=== PATIENT | female | born 1955 | race Caucasian/White ===

== ENCOUNTER 2020-02-26 08:02 | Outpatient (RCR) | payer OTHER, SELFPAY ==
--- NOTE | 2020-02-26 14:24 | PT.OIE ---
Current Diagnoses Lateral epicondylitis, unspecified elbow (02/26/20) Past Medical History (Last Updated 01/21/20 @ 15:45 by Trevon Spencer DO) Chicken pox Dupuytren's contracture Fibroids Heavy menstrual period Herpes Insomnia Measles Mumps Nearsightedness Ovarian cyst Skin cancer Skin tags, multiple acquired Tennis elbow Vasomotor symptoms due to menopause Past Surgical History (Last Updated 01/17/20 @ 21:26 by Chhaya Adrian) Anesthesia History of elbow surgery History of hysterectomy with oophorectomy (~2019) Visit Care Team Role Provider Type Trevon Spencer DO Attending Provider Physician Primary Care Provider Referring Provider Specialty: [facility] Address: [address] [place] [address], [facility] Email: [email or web address] Physical Therapy Initial Evaluation PT-OP-A Visit Information Start: 02/26/20 08:04 Freq: Status: Active Protocol: Document 02/26/20 12:22 (Rec: 02/26/20 12:43 [email or web address]) Out-Patient Physical Therapy Visit Information Visit Information Visit Type Initial Evaluation Visit Start Time 08:16 Visit Stop Time 09:00 Total Visit Minutes 44 Visit Number 1 Number of DIRECTOR OF MEDICAL EDUCATION Visits 0 Evaluation Information Evaluation Date 02/26/20 PT-OP-B Current Condition Start: 02/26/20 08:04 Freq: Status: Active Protocol: Document 02/26/20 12:22 HH (Rec: 02/26/20 12:43 [email or web address]) Current Condition History of Current Condition Onset Date November, Current Complaints B elbow pain R worse than L History of Current Condition Pt is a 64 yo female here referred by Dr. Spencer to assess with B tennis and golfer's elbow. Pt stated her elbow pain started in November after working on her house and boat for 5 days with lots of pushing and gripping motions. Her pain 2-3/10 located mostly at medial epicondyle than lateral epicondyle. R worse than L. Pt has reduced her activity level since then and use of ice which have been helpful. Pt stated she torn her LCL at R elbow 13 years from playing raquet ball but she fully recovered from it. Pt also stated that she is very active person who loves to play tennis, golf which tend to aggravates her symptoms since November. Current Functional Impairments (Reported) Functional Limitations- Recreation/ unable to play tennis and golf Hobbies at this time. PT-OP-C Subjective Start: 02/26/20 08:04 Freq: Status: Active Protocol: Document 02/26/20 12:22 HH (Rec: 02/26/20 12:43 [email or web address]) Patient Questionnaires Quick Dash- Upper Extremity Quick Dash UE Score 38.6 Quick Dash UE Impairment 20 to 39% Impaired (Score 20- 39) OP-PT Pain Assessment Location R epicondyles Pain Location Details medial and lateral Scale Used 2-3 Description Aching Frequency Frequent Pain Aggravating Factors Activity,Exercise,Lifting Pain Alleviating Factors Inactivity L epicondyles Pain Location Details medial and lateral Scale Used 1-2 Description Aching Frequency Frequent Pain Aggravating Factors Activity,Exercise,Lifting Pain Alleviating Factors Inactivity PT-OP-F Manual Assessment Start: 02/26/20 08:04 Freq: Status: Active Protocol: Document 02/26/20 12:22 HH (Rec: 02/26/20 12:43 [email or web address]) Manual Assessments Soft Tissue Assessment Soft Tissue Mobility Assessment significant tenderness to pressure for both Medial epicondyle ( R worse than L) mild tenderness to pressure for both Medial epicondyle ( R worse than L) PT-OP-K Range of Motion Start: 02/26/20 08:04 Freq: Status: Active Protocol: Document 02/26/20 12:22 HH (Rec: 02/26/20 12:43 [email or web address]) Elbow/Forearm Range of Motion Elbow/Forearm Right Active Elbow/Forearm ROM WFL Yes Left Active Elbow/Forearm ROM WFL Yes Wrist Goniometric Range of Motion Wrist Right Wrist ROM WFL Yes Flexion Active (degrees) 85 Extension Active (degrees) 45 Left Wrist ROM WFL Yes Flexion Active (degrees) 82 Extension Active (degrees) 47 PT-OP-L Special Tests Start: 02/26/20 08:04 Freq: Status: Active Protocol: Document 02/26/20 12:22 HH (Rec: 02/26/20 12:43 [email or web address]) Special Tests Wrist/Hand Special Tests Lateral Epicondylitis Flexed Test Results +VE R Lateral Epicondylitis Extended Test Results +VE R Medial Epicondylitis Test Results +VE B PT-OP-M Strength Start: 02/26/20 08:04 Freq: Status: Active Protocol: Document 02/26/20 12:22 HH (Rec: 02/26/20 12:43 [email or web address]) Shoulder Strength Shoulder Manual Muscle Testing Right Flexion 4+ Good+ Extension 4+ Good+ Abduction (C5) 4+ Good+ Left Flexion 4+ Good+ Extension 4+ Good+ Abduction (C5) 4+ Good+ Elbow/Forearm Strength Elbow and Forearm Manual Muscle Testing Right Flexion (C6) 4+ Good+ Extension (C7) 4+ Good+ Pronation 4- Good- Supination 4+ Good+ Comments resisted full pronation with pain Left Flexion (C6) 4+ Good+ Extension (C7) 4+ Good+ Pronation 4- Good- Supination 4+ Good+ Comments resisted full pronation with pain Wrist Strength Wrist Manual Muscle Testing Right Flexion (C7) 4- Good- Extension (C6) 4+ Good+ Comments resisted full flexion with pain dynanometer: position 1(closest) = 56lbs position 2 = 60lbs position 3= 64lbs position 4(farthest) = 60lbs Left Flexion (C7) 4- Good- Extension (C6) 4+ Good+ Comments resisted full flexion with pain dynanometer: position 1(closest) = 64lbs position 2 = 60lbs position 3= 64lbs position 4(farthest) = 58lbs PT-OP-Q Treatments Start: 02/26/20 08:04 Freq: Status: Active Protocol: Document 02/26/20 12:22 (Rec: 02/26/20 14:12 [email or web address]) Therapeutic Exercises Sitting Exercises wrist flexion and extension Side bilateral Equipment Used 2lbs DB Comments for HEP pronation/ supination Sitting Exercise Name from end of hammer head to distal end Side bilateral Equipment Used hammer Comments for HEP, reports discomfort at the distal end Manual Therapy Treatment Soft Tissue Mobilization common extensor tendon Body Location bilateral Mobilization Type Sustained Pressure,Trigger Point Release Intensity/Depth Moderate Body Position Sitting common flexor tendon Body Location Bilateral Mobilization Type Sustained Pressure,Trigger Point Release Intensity/Depth Moderate Body Position Sitting PT-OP-T Assessment and Plan Start: 02/26/20 08:04 Freq: Status: Active Protocol: Document 02/26/20 12:22 HH (Rec: 02/26/20 12:43 [email or web address]) Physical Therapy Assessment Rehab Potential Rehabilitation Potential Excellent Evaluation Complexity Number of Personal Factors/Comorbidities 1-2 Number of Body Systems Impaired 1-2 Clinical Presentation at Evaluation Stable Impairments Impairments Functional Activities, Functional Mobility,Pain,ROM, Soft Tissue Mobility,Strength Goals return to activities. Impairment unable to participate golfing and playing tennis d/t pain Group Dynamics Instructor Goal (LTG) pt will be regain her full strength and able to return to golf and tennis activities without elbow discomfort LTG Duration 8 weeks pain Impairment pain with resisted full pronation and wrist flexion Short Term Goal (STG) pt will have no more than 2/10 palpable pain at both medial and lateral epicondyle STG Duration 4 weeks Group Dynamics Instructor Goal (LTG) pt will have no pain for full resisted elbow pronation and wrist flexion in order for her to continue building/ house work safely. LTG Duration 8 weeks Quickdash Impairment Quickdash scores 38 Mcc Goal (LTG) Pt will score on quickdash <20 to improve her overall quality of life LTG Duration 8 weeks Assessment Summary Assessment This is a 64 yo female here referred by Dr. Spencer for bilateral elbow pain R worse than L. Pt has been progressively getting better since November. Upon assessment, pt has pain located at both medial and lateral epicondyles (medial>lateral; R>L). She has limited wrist extension ( ~50 degrees) and pain with end range resisted pronation and wrist flexion. She overall demonstrates good plater apprentice strength symmetrically and only has discomfort during recreational activities or maximal exertion with gripping and pushing motions. Provided wrist flexors stretch, elbow pron/sup strengthening, wrist flexor strengthening for HEP. Pt will benefit from skilled therapy to improve her overall plater apprentice strength, elbow strength and ROM in order for her to fully return her previous activities such as golfing and playing tennis. Physical Therapy Plan Frequency and Duration Frequency of Treatment 1x/Week Duration of Treatment 8 weeks Plan of Care Start Date 02/26/20 Plan of Care End Date 04/26/20 Therapeutic Interventions Therapeutic Interventions Home Exercise Program,Joint Mobilizations,Manual Therapy, Neuromuscular Re-education, Patient/Caregiver Education, Self-Care/Home Management,Soft Tissue Mobilization,Taping, Therapeutic Activities, Therapeutic Exercises Next Visit Focus/Plan Next Note Type Treatment Note Next Visit Plan STM for common flexor extensor tendon wrist flexor stretch pronation and supination strengtehning wrist flexion strengthening
--- NOTE | 2020-02-26 14:24 | PT.OPPOC ---
Physical, Occupational & Speech Therapy At [facility] Current Diagnoses Lateral epicondylitis, unspecified elbow (02/26/20) Visit Care Team Role Provider Type Trevon Spencer DO Attending Provider Physician Primary Care Provider Referring Provider Specialty: Family Practice Address: [address] [place] [address], [id number] Email: [email or web address] Plan Of Care PT-OP-T Assessment and Plan Start: 02/26/20 08:04 Freq: Status: Active Protocol: Document 02/26/20 12:22 HH (Rec: 02/26/20 12:43 HH [email or web address]) Physical Therapy Assessment Rehab Potential Rehabilitation Potential Excellent Evaluation Complexity Number of Personal Factors/Comorbidities 1-2 Number of Body Systems Impaired 1-2 Clinical Presentation at Evaluation Stable Impairments Impairments Functional Activities, Functional Mobility,Pain,ROM, Soft Tissue Mobility,Strength Goals return to activities. Impairment unable to participate golfing and playing tennis d/t pain Detention Goal (LTG) pt will be regain her full strength and able to return to golf and tennis activities without elbow discomfort LTG Duration 8 weeks pain Impairment pain with resisted full pronation and wrist flexion Short Term Goal (STG) pt will have no more than 2/10 palpable pain at both medial and lateral epicondyle STG Duration 4 weeks [employer]ision Millwright Goal (LTG) pt will have no pain for full resisted elbow pronation and wrist flexion in order for her to continue building/ house work safely. LTG Duration 8 weeks Quickdash Impairment Quickdash scores 38 [employer] Millwright Goal (LTG) Pt will score on quickdash <20 to improve her overall quality of life LTG Duration 8 weeks Assessment Summary Assessment This is a 64 yo female here referred by Dr. Spencer for bilateral elbow pain R worse than L. Pt has been progressively getting better since November. Upon assessment, pt has pain located at both medial and lateral epicondyles (medial>lateral; R>L). She has limited wrist extension ( ~50 degrees) and pain with end range resisted pronation and wrist flexion. She overall demonstrates good social science analyst strength symmetrically and only has discomfort during recreational activities or maximal exertion with gripping and pushing motions. Provided wrist flexors stretch, elbow pron/sup strengthening, wrist flexor strengthening for HEP. Pt will benefit from skilled therapy to improve her overall social science analyst strength, elbow strength and ROM in order for her to fully return her previous activities such as golfing and playing tennis. Physical Therapy Plan Frequency and Duration Frequency of Treatment 1x/Week Duration of Treatment 8 weeks Plan of Care Start Date 02/26/20 Plan of Care End Date 04/26/20 Therapeutic Interventions Therapeutic Interventions Home Exercise Program,Joint Mobilizations,Manual Therapy, Neuromuscular Re-education, Patient/Caregiver Education, Self-Care/Home Management,Soft Tissue Mobilization,Taping, Therapeutic Activities, Therapeutic Exercises Next Visit Focus/Plan Next Note Type Treatment Note Next Visit Plan STM for common flexor extensor tendon wrist flexor stretch pronation and supination strengtehning wrist flexion strengthening Plan of Care Dates Plan of Care Start Date 02/26/20 Plan of Care End Date 04/26/20 Electronically Signed by: Jeane Garnett PT 02/26/20 [id number] Please Sign and Return: I have reviewed this Plan of Care and certify that the skilled therapy services above are required to meet the patient?s needs. Physician Signature Date Printed Name and Credentials Clinical Instructor Signature Printed Name and Credentials
--- NOTE | 2020-02-26 14:24 | PT.OPPOC ---
Physical, Occupational & Speech Therapy At [facility] Current Diagnoses Lateral epicondylitis, unspecified elbow (02/26/20) Visit Care Team Role Provider Type Trevon Spencer DO Attending Provider Physician Primary Care Provider Referring Provider Specialty: Family Practice Address: [address] [place] [address], [id number] Email: [email or web address] Plan Of Care PT-OP-T Assessment and Plan Start: 02/26/20 08:04 Freq: Status: Active Protocol: Document 02/26/20 12:22 HH (Rec: 02/26/20 12:43 HH [email or web address]) Physical Therapy Assessment Rehab Potential Rehabilitation Potential Excellent Evaluation Complexity Number of Personal Factors/Comorbidities 1-2 Number of Body Systems Impaired 1-2 Clinical Presentation at Evaluation Stable Impairments Impairments Functional Activities, Functional Mobility,Pain,ROM, Soft Tissue Mobility,Strength Goals return to activities. Impairment unable to participate golfing and playing tennis d/t pain Care Home Goal (LTG) pt will be regain her full strength and able to return to golf and tennis activities without elbow discomfort LTG Duration 8 weeks pain Impairment pain with resisted full pronation and wrist flexion Short Term Goal (STG) pt will have no more than 2/10 palpable pain at both medial and lateral epicondyle STG Duration 4 weeks Data Warehouse Architect Goal (LTG) pt will have no pain for full resisted elbow pronation and wrist flexion in order for her to continue building/ house work safely. LTG Duration 8 weeks Quickdash Impairment Quickdash scores 38 Data Warehouse Architect Goal (LTG) Pt will score on quickdash <20 to improve her overall quality of life LTG Duration 8 weeks Assessment Summary Assessment This is a 64 yo female here referred by Dr. Spencer for bilateral elbow pain R worse than L. Pt has been progressively getting better since November. Upon assessment, pt has pain located at both medial and lateral epicondyles (medial>lateral; R>L). She has limited wrist extension ( ~50 degrees) and pain with end range resisted pronation and wrist flexion. She overall demonstrates good cut in station operator strength symmetrically and only has discomfort during recreational activities or maximal exertion with gripping and pushing motions. Provided wrist flexors stretch, elbow pron/sup strengthening, wrist flexor strengthening for HEP. Pt will benefit from skilled therapy to improve her overall cut in station operator strength, elbow strength and ROM in order for her to fully return her previous activities such as golfing and playing tennis. Physical Therapy Plan Frequency and Duration Frequency of Treatment 1x/Week Duration of Treatment 8 weeks Plan of Care Start Date 02/26/20 Plan of Care End Date 04/26/20 Therapeutic Interventions Therapeutic Interventions Home Exercise Program,Joint Mobilizations,Manual Therapy, Neuromuscular Re-education, Patient/Caregiver Education, Self-Care/Home Management,Soft Tissue Mobilization,Taping, Therapeutic Activities, Therapeutic Exercises Next Visit Focus/Plan Next Note Type Treatment Note Next Visit Plan STM for common flexor extensor tendon wrist flexor stretch pronation and supination strengtehning wrist flexion strengthening Plan of Care Dates Plan of Care Start Date 02/26/20 Plan of Care End Date 04/26/20 Electronically Signed by: Jeane Garnett PT 02/26/20 [id number] Please Sign and Return: I have reviewed this Plan of Care and certify that the skilled therapy services above are required to meet the patient?s needs. Physician Signature Date Printed Name and Credentials Clinical Instructor Signature Printed Name and Credentials
--- NOTE | 2020-04-07 16:15 | PT.OPDS ---
Current Diagnoses Lateral epicondylitis, unspecified elbow (02/26/20) Visit Care Team Role Provider Type Trevon Spencer DO Attending Provider Physician Primary Care Provider Referring Provider Specialty: Family [facility] Address: [address] [place] [address], [facility] Email: [email or web address] Visit Number Visit Number 1 Discharge Summary PT-OP-T Assessment and Plan Start: 02/26/20 08:04 Freq: Status: Active Protocol: Document 04/07/20 16:14 (Rec: 04/07/20 16:15 [email or web address]) Physical Therapy Plan Discharge Physical Therapy Discharge Reasons Patient Request Discharge Comments Called pt via phone today and she requested to be DC from therapy since she has improved significantly.
== END 2020-04-11 12:22 | disposition home or self-care (01) ==
LOC: PHYS 08:02
PROVIDERS: PCP Family Medicine; Referring Provider Family Medicine; Visit Provider Family Medicine
DX: M77.10 Lateral epicondylitis, unspecified elbow (principal)
CPT/HCPCS: 97110; 97140; 97161

== ENCOUNTER → 2020-03-07 16:36 | Outpatient (CLI) | payer OTHER, SELFPAY ==
--- NOTE | 2020-03-07 16:38 | DI.RAD.S_ITS ---
PROCEDURE: XR LUMBAR SPINE MIN 4V INDICATIONS: Low back pain, new TECHNIQUE: 4 views of the lumbar spine were acquired. COMPARISON: None. FINDINGS: Bones: 5 nonrib-bearing vertebrae are present. There is normal bony alignment. No vertebral body compression fractures. No suspicious bony lesions. Mild levoscoliosis. There is sdea-wm-lauzfysk degenerative disc disease at L2-L3, L3-L4 and L4-L5. Soft tissues: Overlying bowel gas pattern is normal. No suspicious soft tissue calcifications. Oblique images: No pars defects. IMPRESSION: 1. Mild levoscoliosis. 2. Itnu-iw-kwnnglvr degenerative disc disease. Dictated by: Elle Quintero M.D. on 03/07/2020 at 17:04 Approved by: Elle Quintero M.D. on 03/07/2020 at 17:05
== END ==
PROVIDERS: PCP Family Medicine; Referring Provider Family Medicine; Visit Provider Family Medicine
DX: M54.5 Low back pain (principal); M51.36 Other intervertebral disc degeneration, lumbar region; M41.86 Other forms of scoliosis, lumbar region
CPT/HCPCS: 72110

== ENCOUNTER → 2020-04-25 09:26 | Outpatient (CLI) | payer OTHER, SELFPAY ==
[2020-04-25 10:29] LABS: COVID19 -Nasal RAPID Negative (Negative)
== END ==
PROVIDERS: PCP Family Medicine; Visit Provider Family Medicine
DX: Z20.822 Contact with and (suspected) exposure to COVID-19 (principal); R05 Cough
CPT/HCPCS: 87635

== ENCOUNTER → 2020-04-25 10:11 | Outpatient (CLI) | payer OTHER, SELFPAY ==
--- NOTE | 2020-04-25 10:12 | DI.RAD.S_ITS ---
PROCEDURE: XR CHEST 2V INDICATIONS: cough TECHNIQUE: 2 views of the chest were acquired. COMPARISON: None. FINDINGS: Surgical changes and devices: None. Lungs and pleura: Lungs are clear. No pleural effusions or pneumothorax. Mediastinum: Mediastinal contours are normal. Heart size is normal. Bones and chest wall: No suspicious bony abnormalities. Soft tissues appear unremarkable. IMPRESSION: No trauma found. No source of cough identified. Dictated by: Cam Cope M.D. on 04/25/2020 at 11:08 Approved by: Cam Cope M.D. on 04/25/2020 at 11:09
== END ==
PROVIDERS: PCP Family Medicine; Referring Provider Family Medicine; Visit Provider Family Medicine
DX: R05 Cough (principal); Z20.822 Contact with and (suspected) exposure to COVID-19
CPT/HCPCS: 71046; 87635

== ENCOUNTER → 2020-06-09 13:37 | Outpatient (CLI) | payer OTHER, SELFPAY ==
[2020-06-09 14:58] LABS: Hemoglobin A1C% w Est Avg Glu 5.4 % (4.0-6.0)
[2020-06-09 16:16] LABS: Alanine Aminotransferase 18 IU/L (<35); Albumin 4.6 g/dL (3.5-5.0); Albumin Globulin Ratio 1.6 (1.0-2.8); Alkaline Phosphatase 105 U/L (38-126); Aspartate Aminotransferase 36 IU/L (14-36); BUN Creatinine Ratio 14.7 (6-22); Bilirubin Total 0.5 mg/dL (0.2-1.3); Blood Urea Nitrogen 11 mg/dL (7-17); Calcium 9.7 mg/dL (8.4-10.2); Carbon Dioxide 33 mmol/L (22-32); Chloride 103 mmol/L (98-107); Cholesterol 222 mg/dL (140-199); Estimated Glomerular Filt Rate > 60.0 mL/min (>60); Globulin 2.8 g/dL (1.7-4.1); Glucose 95 mg/dL (80-110); HDL Cholesterol 70 mg/dL (40-60); HEMOLYSIS < 15 (0-50); LDL Cholesterol Calculated 143 mg/dL (<100); Potassium 4.5 mmol/L (3.4-5.1); Sodium 138 mmol/L (137-145); Total Protein 7.4 g/dL (6.3-8.2); Triglycerides 47 mg/dL (35-150)
[2020-06-09 16:49] LABS: TSH w/ Reflex to FT4 1.31 uIU/mL (0.47-4.68)
== END ==
PROVIDERS: PCP Family Medicine; Referring Provider Family Medicine; Visit Provider Family Medicine
DX: F51.01 Primary insomnia (principal); M47.816 Spondylosis without myelopathy or radiculopathy, lumbar region; M54.5 Low back pain
CPT/HCPCS: 36415; 80053; 80061; 83036; 84443

== ENCOUNTER → 2020-10-27 08:43 | Outpatient (CLI) | payer OTHER, SELFPAY ==
[2020-10-27 10:02] LABS: Free T3, Triiodothyronine Free 3.22 pg/mL (2.77-5.27); Free T4, Direct Thyroxine 0.78 ng/dL (0.78-2.19)
[2020-10-27 10:16] LABS: Thyroid Stimulating Hormone 1.76 uIU/mL (0.47-4.68)
== END ==
PROVIDERS: PCP Family Medicine; Referring Provider Family Medicine; Visit Provider Family Medicine
DX: E04.1 Nontoxic single thyroid nodule (principal)
CPT/HCPCS: 36415; 84439; 84443; 84481

== ENCOUNTER → 2020-10-29 17:06 | Outpatient (CLI) | payer OTHER, SELFPAY ==
--- NOTE | 2020-10-29 17:06 | DI.US.S_ITS ---
PROCEDURE: US THYROID INDICATIONS: THYROID NODULE TECHNIQUE: Real-time scanning was performed of the thyroid gland, with image documentation. COMPARISON: None. FINDINGS: Right: Thyroid lobe measures 5.0 x 1.6 x 1.7 cm, and is homogeneous in echotexture. Left: Thyroid lobe measures 4.9 x 1.4 x 1.4 cm, and is homogenous in echotexture. Isthmus: 2.2 mm thick. Nodule number: 1 Location: Left mid Size: 0.8 x 0.5 x 0.5 cm. Composition: Mixed cystic/solid. Echogenicity: Hypoechoic/anechoic Shape: wider than tall. Margins: Smooth Echogenic foci: None Total points: 3 ACR TI-RADS category: 3 Nodule number: 2 Location: Left mid Size: 0.5 x 0.3 x 0.4 cm. Composition: Spongiform Echogenicity: Hypoechoic/anechoic Shape: wider than tall. Margins: Smooth Echogenic foci: None Total points: 2 ACR TI-RADS category: 2 Nodule number: 3 Location: Right mid Size: 1.9 x 1.2 x 1.0 cm. Composition: Mixed solid cystic Echogenicity: Isoechoic/anechoic Shape: Wider than tall Margins: Irregular Echogenic foci: Punctate echogenic foci Total points: 5 ACR TI-RADS category: 4 Nodule number: 4 Location: Right inferior Size: 0.8 x 0.5 x 0.7 cm. Composition: Solid Echogenicity: Isoechoic Shape: wider than tall. Margins: Smooth Echogenic foci: None Total points: 3 ACR TI-RADS category: 3 IMPRESSION: 1. Nodule 3 is TI-RADS 4 and greater than 1.5 cm. Recommend ultrasound-guided FNA. 2. Nodules 1, 2, and 4 are TI-RADS 2 and TI-RADS 3 nodules, as above. Recommend follow-up. ACR TI-RADS definitions and recommendations: TI-RADS 1 (benign): 0 points. FNA not needed. TI-RADS 2 (not suspicious): 2 points. FNA not needed. TI-RADS 3 (mildly suspicious): 3 points. * FNA if 2.5 cm or larger, follow up if 1.5 cm or larger (at 1, 3, and 5 years). TI-RADS 4 (moderately suspicious): 4-6 points. * FNA if 1.5 cm or larger, follow up if 1 cm or larger (at 1, 2, 3, and 5 years). TI-RADS 5 (highly suspicious): 7 points or more. * FNA if 1 cm or larger, follow up if 0.5 cm or larger (every year for 5 years). Dictated by: Taj Pittman M.D. on 10/30/2020 at 10:29 Approved by: Taj Pittman M.D. on 10/30/2020 at 12:56
== END ==
PROVIDERS: PCP Family Medicine; Referring Provider Family Medicine; Visit Provider Family Medicine
DX: E04.2 Nontoxic multinodular goiter (principal)
CPT/HCPCS: 76536

== ENCOUNTER → 2020-11-10 12:50 | Outpatient (CLI) | payer OTHER, SELFPAY ==
--- NOTE | 2020-12-03 11:05 | P.HOLT.S_ITS ---
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 Referral & Results Date Patient Seen: 11/10/20 Requesting provider: Aj Randall Indication: Palpitations Duration of monitoring (days): 7 Diary information: There were 26 patient triggered events and 40 patient diary entries All of these patient events were associated with (within 45 seconds) sinus rhythm and PACs Data: Minimum heart rate identified was 45 beats per minute at 05:05 on 11/12/2020 Maximum heart rate was 143 beats per minute at 13:24 on 11/13/2020 There were 12 runs of SVT the fastest being the 7 beat run at a rate of 143 beats per minute (which suggest possibly more atrial tachycardia than true SVT), the longest lasting 8 beats at a rate of 115 beats per minute Less than 1% of identified beats were ventricular or supraventricular ectopic in origin, which would classify them as rare. Impression: 7 day teletypesetter monitor suggesting patient's sense palpitations more likely than not related to simple PACs No other serious dysrhythmias identified on this study
== END ==
PROVIDERS: PCP Family Medicine; Referring Provider Family Medicine; Visit Provider Family Medicine
DX: R00.2 Palpitations (principal)
CPT/HCPCS: 93242; 93244

== ENCOUNTER → 2020-11-19 14:32 | Outpatient (CLI) | payer OTHER, SELFPAY ==
--- NOTE | 2020-11-19 | PATH_ITS ---
Note [facility] Accession Number: [id number] TESTS RESULT FLAG UNITS REF RANGE LAB Clinician Provided Cytology Information No. of containers..01 Other (Miscellaneous) No. of containers..08 Previously Prepared Cytology Slide RIGHT THYROID NODULE DIAGNOSIS: 01 RIGHT THYROID NODULE NEGATIVE FOR MALIGNANT CELLS. BETHESDA CATEGORY II. SPECIMEN CONSISTS OF BENIGN FOLLICULAR CELLS, SOME WITH HURTHELOID FEATURES, HEMOSIDERIN-LADEN MACROPHAGES, AND COLLOID. THIS PATTERN IS CONSISTENT WITH A BENIGN FOLLICULAR NODULE. COMMENT: Researcher slides of this case are also reviewed by Dr. Aby Patterson who concurs with the given interpretation. Pathologist ICD10: 01 E04.1 01 Right: Thyroid lobe measures 5.0 x 1.6 x 1.7 cm, and is homogeneous in echotexture. Left: Thyroid lobe measures 4.9 x 1.4 x 1.4 cm, and is homogenous in echotexture. Isthmus: 2.2 mm thick. 01 Yelena Maxwell MD, Pathologist NPI- [id number] Maicol Flores, Clerical Coordinator ([facility]) 01 30 CC, PINK, CLEAR RECIEVED: IN CYTOLYT WITH 9 ALCOHOL FIXED AND 9 QUICK STAINED SLIDES ALSO 1 RNA VIAL WAS RECEIVED FOR FURTHER TESTING. /VDU 11/20/2020 0647 Local FLAG LEGEND: L-Low Normal,H-High Normal,LL-Alert Low,HH-Alert High <-Panic Low,>-Panic High,A-Abnormal,AA-Critical Abnormal Performed at: 01 =[facility] [address], [place] [address] Nima Flores MD, Performed at: 01 [facility] [address], [place], [place] [id number] MD Nima Flores MD Phone: [phone]
--- NOTE | 2020-11-19 14:32 | DI.US.S_ITS ---
PROCEDURE: US FINE NEEDLE ASPIRATION INDICATIONS: RIGHT THYROID NODULE TECHNIQUE: The indications, alternatives, benefits, risks, and complications of the procedure were explained to the patient. Written informed consent was obtained and placed in the chart. The thyroid region was examined sonographically and a site was chosen for ultrasound guided percutaneous sampling. The skin was prepared and draped in the usual fashion, and anesthetized with 1% lidocaine infiltrated from the skin down to the thyroid gland. Multiple passes were then performed, with contents emptied into an appropriate pathology specimen container. A bandage was applied to the area of access at completion of the study. COMPARISON: None. FINDINGS: Location(s) of lesion(s) sampled: Right mid lobe Norris: 22 and 25 gauge hypodermic needles. Number of passes: 9 Medications: 1% lidocaine for local anaesthesia. Complications: None. IMPRESSION: Successful ultrasound-guided thyroid nodule fine needle aspiration, with cytology results pending. Please see chart below for management recommendations based on cytology results. [place] [facility] ReportingRecommendationsNon-diagnostic* Repeat US-guided FNA, with on-site cytology evaluation if possible. * Repeated non-diagnostic nodules without high suspicion US features: close observation vs surgical consult. * Consider surgery if nodule has high suspicion US features, grows >20% in 2 dimensions on followup, or patient has clinical risk factors for malignancy. Benign* If nodule has high suspicion US features: repeat US and FNA within 12 months. * If nodule has low to intermediate suspicion US features: repeat US at 12-24 months. If nodule grows (20% increase in at least 2 dimensions, with minimal increase of 2 mm or >50% change in volume), or development of new suspicious US features, then repeat FNA or continue followup. * If nodule has very low suspicion US features: followup US at >24 months. Atypia of undetermined significance, follicular lesion of undetermined significanceRepeat FNA, molecular testing, followup US, or surgical consult.Follicular neoplasm, suspicious for follicular neoplasmSurgical consult; also consider molecular testing. Suspicious for malignancySurgical consult.MalignantSurgical consult. Dictated by: Brandon Murillo M.D. on 11/19/2020 at 16:45 Approved by: Brandon Murillo M.D. on 11/19/2020 at 16:45
== END ==
PROVIDERS: PCP Family Medicine; Referring Provider Family Medicine; Visit Provider Family Medicine
DX: E04.1 Nontoxic single thyroid nodule (principal)
CPT/HCPCS: 10005

== ENCOUNTER → 2020-12-19 12:21 | Outpatient (CLI) | payer OTHER, SELFPAY ==
[2020-12-19 13:26] LABS: Add Manual Diff / Slide Review NO; Basophils Absolute Auto 100 /uL (0-100); Basophils Percent Auto 1.2 % (0-2); Eosinophils Absolute Auto 100 /uL (0-450); Eosinophils Percent Auto 2.7 % (2-4); Hematocrit 37.3 % (36-46); Hemoglobin 12.4 g/dL (12.0-16.0); Lymphocytes Absolute Auto 1700 /uL (1100-4500); Lymphocytes Percent Auto 37.4 % (25-40); Mean Corpuscular HGB Conc 33.3 % (30-36); Mean Corpuscular Hemoglobin 29.9 PG (26-34); Mean Corpuscular Volume 89.8 fL (80-100); Monocytes Absolute Auto 400 /uL (0-900); Monocytes Percent Auto 9.4 % (3-14); Neutrophils Absolute Auto 2300 /uL (1500-7000); Neutrophils Percent Auto 49.3 % (50-75); Platelet Count 299 X10^3/uL (150-400); Red Blood Cell Count 4.15 X10^6/uL (4.0-5.2); Red Cell Distribution Width 13.6 % (11.6-14.8); White Blood Cell Count 4.7 X10^3/uL (4.5-11.0)
[2020-12-19 13:59] LABS: Alanine Aminotransferase 18 IU/L (<35); Albumin 4.3 g/dL (3.5-5.0); Albumin Globulin Ratio 1.6 (1.0-2.8); Alkaline Phosphatase 73 U/L (38-126); Aspartate Aminotransferase 34 IU/L (14-36); BUN Creatinine Ratio 16.2 (6-22); Bilirubin Total 0.5 mg/dL (0.2-1.3); Blood Urea Nitrogen 12 mg/dL (7-17); Calcium 9.8 mg/dL (8.4-10.2); Carbon Dioxide 29 mmol/L (22-32); Chloride 106 mmol/L (98-107); Estimated Glomerular Filt Rate > 60.0 mL/min (>60); Globulin 2.7 g/dL (1.7-4.1); Glucose 97 mg/dL (80-110); HEMOLYSIS < 15 (0-50); Lactate Dehydrogenase 490 U/L (313-618); Potassium 3.9 mmol/L (3.4-5.1); Sodium 139 mmol/L (137-145)
[2020-12-19 14:43] LABS: Vitamin B12 Reflex MMA if <400 659 pg/mL (239-931)
[2020-12-19 15:01] LABS: Vitamin D 25 Hydroxy (D3) 37.6 ng/mL (30.0-100.0)
== END ==
PROVIDERS: PCP Family Medicine; Referring Provider Family Medicine; Visit Provider Family Medicine
DX: R00.2 Palpitations (principal); F41.9 Anxiety disorder, unspecified; R23.2 Flushing
CPT/HCPCS: 36415; 80053; 82306; 82607; 83615; 85025

== ENCOUNTER → 2021-07-23 10:23 | Outpatient (CLI) | payer OTHER, SELFPAY ==
[2021-07-23 11:49] LABS: Add Manual Diff / Slide Review NO; Basophils Absolute Auto 100 /uL (0-100); Basophils Percent Auto 1.4 % (0-2); Eosinophils Absolute Auto 100 /uL (0-450); Eosinophils Percent Auto 2.3 % (2-4); Hematocrit 36.8 % (36-46); Hemoglobin 12.5 g/dL (12.0-16.0); Lymphocytes Absolute Auto 1700 /uL (1100-4500); Lymphocytes Percent Auto 41.6 % (25-40); Mean Corpuscular HGB Conc 33.9 % (30-36); Mean Corpuscular Hemoglobin 30.2 PG (26-34); Mean Corpuscular Volume 88.9 fL (80-100); Monocytes Absolute Auto 400 /uL (0-900); Monocytes Percent Auto 8.6 % (3-14); Neutrophils Absolute Auto 1900 /uL (1500-7000); Neutrophils Percent Auto 46.1 % (50-75); Platelet Count 308 X10^3/uL (150-400); Red Blood Cell Count 4.14 X10^6/uL (4.0-5.2); White Blood Cell Count 4.1 X10^3/uL (4.5-11.0)
[2021-07-23 12:23] LABS: Alanine Aminotransferase 18 IU/L (<35); Albumin 4.5 g/dL (3.5-5.0); Albumin Globulin Ratio 1.7 (1.0-2.8); Alkaline Phosphatase 62 U/L (38-126); Aspartate Aminotransferase 35 IU/L (14-36); BUN Creatinine Ratio 13.6 (6-22); Bilirubin Total 0.6 mg/dL (0.2-1.3); Blood Urea Nitrogen 11 mg/dL (7-17); Calcium 9.5 mg/dL (8.4-10.2); Carbon Dioxide 28 mmol/L (22-32); Chloride 106 mmol/L (98-107); Cholesterol 234 mg/dL (140-199); Estimated Glomerular Filt Rate > 60 mL/min (>60); Globulin 2.7 g/dL (1.7-4.1); Glucose 88 mg/dL (80-110); HDL Cholesterol 82 mg/dL (40-60); HEMOLYSIS 50 (0-50); LDL Cholesterol Calculated 135 mg/dL (<100); Potassium 4.8 mmol/L (3.4-5.1); Sodium 140 mmol/L (137-145); Total Protein 7.2 g/dL (6.3-8.2); Triglycerides 83 mg/dL (35-150)
[2021-07-23 12:44] LABS: Free T3, Triiodothyronine Free 4.05 pg/mL (2.77-5.27); Free T4, Direct Thyroxine 1.04 ng/dL (0.78-2.19)
[2021-07-23 12:57] LABS: TSH w/ Reflex to FT4 1.44 uIU/mL (0.47-4.68)
== END ==
PROVIDERS: PCP Family Medicine; Referring Provider Family Medicine; Visit Provider Family Medicine
DX: Z00.00 Encounter for general adult medical examination without abnormal findings (principal); E04.1 Nontoxic single thyroid nodule; F41.9 Anxiety disorder, unspecified; M47.816 Spondylosis without myelopathy or radiculopathy, lumbar region
CPT/HCPCS: 36415; 80053; 80061; 84439; 84443; 84481; 85025

== ENCOUNTER → 2021-10-14 08:16 | Outpatient (CLI) | payer OTHER, SELFPAY ==
[2021-10-14 09:40] LABS: Add Manual Diff / Slide Review NO; Basophils Absolute Auto 100 /uL (0-100); Basophils Percent Auto 1.7 % (0-2); Eosinophils Absolute Auto 100 /uL (0-450); Eosinophils Percent Auto 3.7 % (2-4); Hematocrit 37.6 % (36-46); Hemoglobin 12.7 g/dL (12.0-16.0); Lymphocytes Absolute Auto 1500 /uL (1100-4500); Lymphocytes Percent Auto 37.9 % (25-40); Mean Corpuscular HGB Conc 33.8 % (30-36); Mean Corpuscular Hemoglobin 29.7 PG (26-34); Mean Corpuscular Volume 87.9 fL (80-100); Monocytes Absolute Auto 400 /uL (0-900); Monocytes Percent Auto 9.9 % (3-14); Neutrophils Absolute Auto 1800 /uL (1500-7000); Neutrophils Percent Auto 46.8 % (50-75); Platelet Count 315 X10^3/uL (150-400); Red Blood Cell Count 4.28 X10^6/uL (4.0-5.2); White Blood Cell Count 3.8 X10^3/uL (4.5-11.0)
== END ==
PROVIDERS: PCP Family Medicine; Referring Provider Family Medicine; Visit Provider Family Medicine
DX: D72.819 Decreased white blood cell count, unspecified (principal)
CPT/HCPCS: 36415; 85025

== ENCOUNTER → 2021-11-03 07:50 | Outpatient (CLI) | payer OTHER, SELFPAY ==
--- NOTE | 2021-11-03 07:51 | DI.US.S_ITS ---
PROCEDURE: US THYROID INDICATIONS: thyroid nodule TECHNIQUE: Real-time scanning was performed of the thyroid gland, with image documentation. COMPARISON: [facility], US, US THYROID, 10/29/2020, 16:20. FINDINGS: Right: Thyroid lobe measures 4.8 x 1.9 x 2.0 cm, and is homogeneous in echotexture. Left: Thyroid lobe measures 4.6 x 1.6 x 1.3 cm, and is homogenous in echotexture. Isthmus: 3.1 mm thick. Nodule number: 1 Location: Left mid Size: 1.0 x 0.8 x 0.5 cm. Composition: Predominantly solid Echogenicity: Hypoechoic Shape: wider than tall. Margins: Smooth Echogenic foci: None Total points: 4 ACR TI-RADS category: Moderately suspicious Nodule number: 2 Location: Left mid Size: 0.5 x 0.5 x 0.3 cm. Composition: Solid Echogenicity: Hypoechoic Shape: wider than tall. Margins: Smooth Echogenic foci: None Total points: 4 ACR TI-RADS category: Moderately suspicious Nodule number: 3 Location: Right mid Size: 2.1 x 1.7 x 1.2 cm. Composition: Mixed solid cystic Echogenicity: Isoechoic Shape: wider than tall. Margins: Lobulated Echogenic foci: Punctate Total points: 6 ACR TI-RADS category: Moderately suspicious Nodule number: 4 Location: Right inferior Size: 0.8 x 0.6 x 0.5 cm. Composition: Solid Echogenicity: Isoechoic Shape: wider than tall. Margins: Smooth Echogenic foci: None Total points: 3 ACR TI-RADS category: Mildly suspicious IMPRESSION: Multiple thyroid nodules stable compared to October 29, 2020. Continued surveillance of the nodules based on criteria outlined by is recommended. ACR TI-RADS definitions and recommendations: TI-RADS 1 (benign): 0 points. FNA not needed. TI-RADS 2 (not suspicious): 2 points. FNA not needed. TI-RADS 3 (mildly suspicious): 3 points. * FNA if 2.5 cm or larger, follow up if 1.5 cm or larger (at 1, 3, and 5 years). TI-RADS 4 (moderately suspicious): 4-6 points. * FNA if 1.5 cm or larger, follow up if 1 cm or larger (at 1, 2, 3, and 5 years). TI-RADS 5 (highly suspicious): 7 points or more. * FNA if 1 cm or larger, follow up if 0.5 cm or larger (every year for 5 years). Dictated by: Rissa Del Castillo MD, PhD on 11/03/2021 at 12:18 Approved by: Rissa Del Castillo MD, PhD on 11/03/2021 at 12:26
== END ==
PROVIDERS: PCP Family Medicine; Referring Provider Family Medicine; Visit Provider Family Medicine
DX: E04.2 Nontoxic multinodular goiter (principal); F41.9 Anxiety disorder, unspecified; M47.816 Spondylosis without myelopathy or radiculopathy, lumbar region
CPT/HCPCS: 76536

== ENCOUNTER → 2021-11-18 15:44 | Outpatient (CLI) | payer OTHER, SELFPAY ==
[2021-11-18 16:19] LABS: Add Manual Diff / Slide Review NO; Basophils Absolute Auto 100 /uL (0-100); Basophils Percent Auto 1.2 % (0-2); Eosinophils Absolute Auto 100 /uL (0-450); Eosinophils Percent Auto 2.7 % (2-4); Hematocrit 35.7 % (36-46); Hemoglobin 12.1 g/dL (12.0-16.0); Lymphocytes Absolute Auto 1800 /uL (1100-4500); Lymphocytes Percent Auto 36.3 % (25-40); Mean Corpuscular Hemoglobin 30.1 PG (26-34); Mean Corpuscular Volume 88.4 fL (80-100); Monocytes Absolute Auto 400 /uL (0-900); Monocytes Percent Auto 7.3 % (3-14); Neutrophils Absolute Auto 2700 /uL (1500-7000); Neutrophils Percent Auto 52.5 % (50-75); Platelet Count 308 X10^3/uL (150-400); Red Blood Cell Count 4.03 X10^6/uL (4.0-5.2); Red Cell Distribution Width 13.1 % (11.6-14.8); White Blood Cell Count 5.1 X10^3/uL (4.5-11.0)
[2021-11-18 16:32] LABS: Alanine Aminotransferase 16 IU/L (<35); Albumin 4.2 g/dL (3.5-5.0); Albumin Globulin Ratio 1.6 (1.0-2.8); Alkaline Phosphatase 69 U/L (38-126); Aspartate Aminotransferase 28 IU/L (14-36); BUN Creatinine Ratio 15.8 (6-22); Bilirubin Total 0.3 mg/dL (0.2-1.3); Blood Urea Nitrogen 12 mg/dL (7-17); Calcium 9.2 mg/dL (8.4-10.2); Carbon Dioxide 29 mmol/L (22-32); Chloride 104 mmol/L (98-107); Estimated Glomerular Filt Rate > 60 mL/min (>60); Globulin 2.6 g/dL (1.7-4.1); Glucose 120 mg/dL (80-110); HEMOLYSIS < 15 (0-50); Potassium 4.4 mmol/L (3.4-5.1); Sodium 140 mmol/L (137-145); Total Protein 6.8 g/dL (6.3-8.2)
[2021-11-18 17:36] LABS: Folate 9.4 ng/mL (2.76-20.0); Vitamin B12 521 pg/mL (239-931)
[2021-11-20 14:16] LABS: Albumin 3.9 g/dL (2.9-4.4); Alpha-1-Globulin 0.1 g/dL (0.0-0.4); Alpha-2-Globulin 0.6 g/dL (0.4-1.0); Gamma Globulin 0.9 g/dL (0.4-1.8); Globulin Total 2.5 g/dL (2.2-3.9); Protein, Total 6.4 g/dL (6.0-8.5)
[2021-11-21 14:09] LABS: ANA Screen, IFA Negative (.)
== END ==
PROVIDERS: PCP Family Medicine; Referring Provider Internal Medicine Medical Oncology; Visit Provider Internal Medicine Medical Oncology
DX: D72.819 Decreased white blood cell count, unspecified (principal)
CPT/HCPCS: 36415; 80053; 82607; 82746; 84155; 84165; 85025; 86038

== ENCOUNTER → 2022-05-04 15:50 | Outpatient (CLI) | payer OTHER, SELFPAY ==
[2022-05-04 17:15] LABS: Add Manual Diff / Slide Review NO; Basophils Absolute Auto 0 /uL (0-100); Basophils Percent Auto 0.7 % (0-2); Eosinophils Absolute Auto 100 /uL (0-450); Eosinophils Percent Auto 2.2 % (2-4); Hematocrit 37.5 % (36-46); Hemoglobin 12.7 g/dL (12.0-16.0); Lymphocytes Absolute Auto 1900 /uL (1100-4500); Lymphocytes Percent Auto 31.7 % (25-40); Mean Corpuscular HGB Conc 33.8 % (30-36); Mean Corpuscular Hemoglobin 29.8 PG (26-34); Mean Corpuscular Volume 88.1 fL (80-100); Monocytes Absolute Auto 500 /uL (0-900); Monocytes Percent Auto 7.6 % (3-14); Neutrophils Absolute Auto 3400 /uL (1500-7000); Neutrophils Percent Auto 57.8 % (50-75); Platelet Count 308 X10^3/uL (150-400); Red Blood Cell Count 4.26 X10^6/uL (4.0-5.2); Red Cell Distribution Width 13.3 % (11.6-14.8); White Blood Cell Count 5.9 X10^3/uL (4.5-11.0)
[2022-05-04 18:06] LABS: TSH w/ Reflex to FT4 1.24 uIU/mL (0.47-4.68)
== END ==
PROVIDERS: PCP Family Medicine; Referring Provider Family Medicine; Visit Provider Family Medicine
DX: D72.819 Decreased white blood cell count, unspecified (principal); E04.1 Nontoxic single thyroid nodule; R23.2 Flushing
CPT/HCPCS: 36415; 84443; 85025

== ENCOUNTER 2022-09-06 17:52 | Emergency (ER) | payer MEDICARE, OTHER, SELFPAY ==
[2022-09-06 17:56] VITALS: BP 161/76; PULSE 60; RESP 16; TEMP 36.7; O2SAT 99; BMI 21.7
[2022-09-06] MEDS: ONDANSETRON 4 MG ODT SL (18:09)
--- NOTE | 2022-09-06 20:33 | ED.FALL ---
HPI - Fall General Chief Complaint: Fall Stated Complaint: Fell on back Time Seen by Provider: 09/06/22 20:23 Source: patient Mode of arrival: Ambulatory History of Present Illness HPI Narrative: 66-year-old woman with minimal medical history was on her boat this afternoon she stepped down off a ladder into an open port stumbled fell backward landing on her back with an abrasion at approximately L1 across her back. She is having tenderness in right posterior ribs count, right flank pain, mild dyspnea and pain that she describes as more severe than anything she is experienced previously. She is able to speak in full sentences and give a complete and coherent history. She is splinting and leaning forward for pain control. Related Data Previous Rx's Medication Instructions Recorded trazodone 50 mg tablet See Rx Instructions .Route 03/15/22 .COMPLEX #90 tabs oxycodone-acetaminophen 5 mg-325 1 tab PO Q6H PRN pain #10 tabs 09/06/22 mg tablet Allergies Allergy/AdvReac Type Severity Reaction Status Date / Time codeine Allergy Mild itchy, Verified 09/06/22 18:01 jumpy Sulfa (Sulfonamide Allergy Mild GI Upset Verified 09/06/22 18:01 Antibiotics) Review of Systems Review of Systems Narrative: Remainder of complete review of systems is otherwise unremarkable except for that included in the HPI. Patient History Medical History (Updated 09/06/22 @ 23:31 by Enedelia Camp MD) Acute maxillary sinusitis Bilateral nonpulsatile tinnitus Chicken pox Chronic sinusitis Degenerative arthritis of lumbar spine Dupuytren's contracture Fibroids Heavy menstrual period Herpes Hot flashes Insomnia Left foot pain Low back pain Measles Mumps Nearsightedness Osteopenia Ovarian cyst Palpitations Skin cancer Skin tags, multiple acquired Spasm of back muscles Tennis elbow Thyroid nodule Vasomotor symptoms due to menopause Surgical History Anesthesia History of elbow surgery History of hysterectomy with oophorectomy (~2018) Family History Father Hypertension Mental health problem Mother Cancer Hypertension Sister Hypertension Sister Hypertension Grandfather Stroke Grandmother No problems noted. Grandfather Parkinson's disease Social History Smoking Status: Never smoker Smoking Status: Never smoker Exam Initial Vital Signs Initial Vital Signs: Vital Signs Temperature 98.1 F 09/06/22 17:56 Pulse Rate 60 09/06/22 17:56 Respiratory Rate 16 09/06/22 17:56 Blood Pressure 161/76 H 09/06/22 17:56 Pulse Oximetry 99 09/06/22 17:56 Oxygen Delivery Method Room Air 09/06/22 17:56 General: Healthy appearing, in moderate distress secondary to pain. Able to give a complete and coherent history. Well-nourished well-developed HEENT: Moist mucous membranes, normal sclera with reactive pupils, head is atraumatic normocephalic Neck: , supple Respiratory: Lungs are clear to auscultation, no wheezing no rales no rhonchi. Full and symmetrical air movement Chest: Tenderness over the right lower posterior ribs. No subcutaneous air. She does have an abrasion over the midportion of her back proximally L1 level extending into the right flank area. Cardiac: Regular rate and rhythm no murmurs no bruits Abdomen: Soft, tender over the right flank, good bowel tones, no flank pain Skin: Warm and dry, no rashes Neurologic: Grossly neurologically intact with no obvious asymmetries or abnormalities Extremities: No trauma, well perfused Psych: Cooperative, appropriate insight and affect Course Orders Ordered: ED Orders 09/06/22 20:34 CT chest abd pel w con Stat 09/06/22 20:40 Complete Blood Count AUTO DIFF Stat Comprehensive Metabolic Panel Stat Lipase Stat Hydromorphone HCl (Hydromorphone 0.5 Mg Inj) 0.5 mg IV Q15MIN PRN PRN Reason: Pain, Last Admin: 09/06/22 20:47 Dose: 0.5 mg Documented By: WAYNE Ondansetron HCl (Ondansetron 4 Mg Odt) 4 mg SL NOW PRN PRN Reason: Nausea And Vomiting Last Admin: 09/06/22 18:09 Dose: 4 mg Documented By: AT Discontinued Medications Sodium Chloride (Normal Saline 0.9%) 1,000 mls @ 1,000 mls/hr IV BOLUS ONE Stop: 09/06/22 21:33 Last Infusion: 09/06/22 21:54 Dose: 0 mls/hr Documented By: Admin: 09/06/22 20:52 Dose: 1,000 mls/hr Documented By: WAYNE Ketorolac Tromethamine (Ketorolac 30 Mg/Ml Vial) 15 mg IV NOW ONE Stop: 09/06/22 23:27 Ondansetron HCl (Ondansetron 4 Mg/2 Ml Inj) 4 mg IV NOW ONE Stop: 09/06/22 20:35 Last Admin: 09/06/22 20:47 Dose: 4 mg Documented By: WAYNE Oxycodone/Acetaminophen (Oxycodone/Acetaminophen 5/325 Tablet) 1 tab PO NOW ONE Stop: 09/06/22 23:27 Oxycodone/Acetaminophen (Oxycodone/Apap 5/325 Prepack) 1 bottle MISC SEEINSTR ONE Stop: 09/06/22 23:27 Vital Signs Vital signs: Vital Signs - 8 hr 09/06/22 17:56 09/06/22 21:55 09/06/22 23:30 Temperature 98.1 F Pulse Rate 60 54 L 51 L Respiratory Rate 16 18 18 Blood Pressure 161/76 H 161/79 H 167/77 H Pulse Oximetry 99 99 99 Oxygen Delivery Method Room Air Room Air Room Air MDM - Fall Lab Data 09/06/22 20:40 09/06/22 20:40 Labs: Lab Results 09/06/22 09/06/22 Range/Units 20:40 20:40 WBC 14.3 H (4.5-11.0) X10^3/uL RBC 4.43 (4.0-5.2) X10^6/uL Hgb 13.0 (12.0-16.0) g/dL Hct 39.5 (36-46) % MCV 89.1 (80-100) fL MCH 29.4 (26-34) PG MCHC 33.0 (30-36) % RDW 13.4 (11.6-14.8) % Plt Count 363 (150-400) X10^3/uL Neut % (Auto) 85.3 H (50-75) % Lymph % (Auto) 9.7 L (25-40) % [place] % (Auto) 4.4 (3-14) % Eos % (Auto) 0.2 L (2-4) % Baso % (Auto) 0.4 (0-2) % Neut # (Auto) 06537 H (2839-3314) /uL Lymph # (Auto) 1400 (8225-2026) /uL [place] # (Auto) 600 (0-900) /uL Eos # (Auto) 0 (0-450) /uL Baso # (Auto) 100 (0-100) /uL Sodium 140 (137-145) mmol/L Potassium 4.8 (3.4-5.1) mmol/L Chloride 103 (98-107) mmol/L Carbon Dioxide 29 (22-32) mmol/L BUN 16 (7-17) mg/dL Creatinine 0.81 (0.52-1.04) mg/dL Estimated GFR > 60 (>60) mL/min BUN/Creatinine Ratio 19.8 (6-22) Glucose 119 H (80-110) mg/dL Calcium 9.7 (8.4-10.2) mg/dL Total Bilirubin 0.5 (0.2-1.3) mg/dL AST 55 H (14-36) IU/L ALT 35 H (<35) IU/L Alkaline Phosphatase 92 (38-126) U/L Total Protein 8.0 (6.3-8.2) g/dL Albumin 4.9 (3.5-5.0) g/dL Globulin 3.1 (1.7-4.1) g/dL Albumin/Globulin Ratio 1.6 (1.0-2.8) Lipase 188 (23-300) U/L Urine Dip Bedside Urine Glucose Negative Bedside Urine Bilirubin - Negative Bedside Urine Ketone +/- 5 Urine Specific [place] 1.015 Bedside Urine Occult Blood - Negative Bedside Urine pH 6.5 Bedside Urine Protein - Negative Bedside Urine Urobilinogen - Negative Bedside Urine Nitrite - Negative Bedside Urine Leukocytes - Negative Esterase MDM Narrative Medical decision making narrative: CC: Misstepped from a ladder falling into a port on her boat complaining of mid back pain. This is an acute problem uncertain prognosis Complicating co-morbidities: None Data collected from: patient, Differential considered: Rib fractures, pneumothorax, splenic rupture, renal contusion, lumbar compression fracture Exam documented above, pertinent findings include: Abrasion over the L1 level of her back consistent with a fall. Tenderness along the left side from mid thorax down to iliac crest. No significant abdominal tenderness. No head or neck injuries. Lab Test results independently reviewed as above. Pertinent findings: CBC shows mild leukocytosis with left shift. No acute anemia. Patient does have any infectious Disease complaints at this time. Chemistries are reassuring with normal creatinine. Slightly elevated ALT and AST. Which is a slight increased from comparison labs in November of 2021 Imaging studies independently reviewed:CT scan of the chest abdomen and pelvis is unremarkable. No rib fractures, pneumothorax, compression fractures, splenic injury or other abnormalities identified. Treatments: Fluids, parenteral Dilaudid parenteral Zofran Discussion: Patient is feeling somewhat better after parenteral medications and Zofran. All findings reviewed in detail with her. She is re-examined and while she is sore there is not any evidence of acute surgical abdomen, internal bleeding or respiratory distress. Reviewed anticipated course of recovery and reasons to return to the emergency department. Questions are answered and she is safe for discharge home Discharge Plan Departure Patient Disposition: Home Clinical Impression: Trauma Back contusion Qualifiers: Encounter type: initial encounter Laterality: left Qualified Code(s): S20.222A - Contusion of left back wall of thorax, initial encounter Contusion of rib on right side Qualifiers: Encounter type: initial encounter Qualified Code(s): S20.211A - Contusion of right front wall of thorax, initial encounter Activity Restrictions/Additional Instructions: Thank you for coming in today I am sorry that you fell but I am quite pleased that you did not break any bones, collapsed any lungs or have any internal bleeding. The abrasion over your back is likely going to have more bruising tomorrow. You clearly have some contusions to your lower ribs on the right. Please expect to be increasingly sore over the next 24-48 hours. Using 400 mg of ibuprofen (2 hnus-lez-vqkmnog pills) and 1 Tylenol every 6 hours can be very helpful in controlling pain. For severe pain you can add 1 Percocet to this. If you do choose to use the Percocet please recognize that it is a narcotic and does cause constipation. Make sure your increasing water, fiber and adding stool softeners as needed. Prescription for Percocet was electronically transmitted to [facility] in [place] Making sure that you are getting up and moving occasionally even though it is hurting is going to help you heal faster in the long run. If you find that you are getting worse or develop any new symptoms, please feel free to return to the emergency department for further evaluation. Prescriptions: New oxycodone-acetaminophen 5-325 mg tablet 1 tab PO Q6H PRN (Reason: pain) Qty: 10 0RF No Action trazodone 50 mg tablet See Rx Instructions .ROUTE .COMPLEX Qty: 90 1RF Dose Instruction: Take 0.5 tablets (25 mg) by mouth daily Rx Instructions: Take 0.5 tablets (25 mg) by mouth daily Referrals: Aj Randall MD [Primary Care Provider] - Stand Alone Forms: Patient Portal/API
--- NOTE | 2022-09-06 20:34 | DI.CT.S_ITS ---
PROCEDURE: CT CHEST ABD PEL W CON INDICATIONS: trauma, fell in boat landing on back. pain worse on right TECHNIQUE: After the administration of intravenous contrast, 5 mm thick sections acquired from the lung apices to the symphysis. 2.5 mm thick coronal and sagittal reformats were acquired. Additional 7 mm thick coronal maximum intensity projection (MIP) reformats acquired through the lungs. Optional 10-minute delayed imaging may be performed from the kidneys to the bladder. For radiation dose reduction, the following was used: automated exposure control, adjustment of mA and/or kV according to patient size. COMPARISON: None. FINDINGS: Image quality: Excellent. CHEST: Lower Neck: No lymphadenopathy by size criteria. Thyroid: There is a small hypoattenuating right thyroid nodule measuring up to 1.1 cm. Axillae: No lymphadenopathy by size criteria. Chest Wall: Unremarkable. Bones: No acute fractures identified. Lungs and Airways: No pulmonary contusions or lacerations. No acute consolidation. There is minimal dependent atelectasis in the left lung base. The trachea and central airways are patent. Pleura: No pneumothorax or pleural effusions. Heart: Heart size is normal. No pericardial effusion. Thoracic Vessels: The aorta and pulmonary arteries are normal in size. Mediastinum and Anju: No lymphadenopathy by size criteria. No definite mediastinal hematomas. Esophagus: No wall thickening. No hiatal hernia. ABDOMEN: Liver: No hepatic lacerations or perihepatic fluid collections. Gallbladder: Within normal limits without calcified gallstones. Biliary ducts: No biliary ductal dilatation. Pancreas: Unremarkable. Spleen: Normal in size. No definite splenic lacerations or perisplenic fluid collections. There is a cleft within the spleen. Adrenal Glands: No adrenal nodules. Kidneys and Ureters: No hydronephrosis. There is a left renal cyst. Stomach and Bowel: Stomach, small bowel loops, and colon are normal in caliber and wall thickness. The appendix is normal. Peritoneum: No abnormal intraperitoneal fluid. No free air. Ventral Wall: No hernia. Abdominal Nodes: No retroperitoneal or mesenteric adenopathy by size criteria. Vessels: Aorta and inferior vena cava are normal in size. PELVIS: Pelvic Organs: The uterus is surgically absent. Bladder: Unremarkable. Pelvic Nodes: No enlarged lymph nodes. Miscellaneous: No inguinal hernias are seen. Bones: No acute fractures identified. Visualized osseous structures demonstrate no suspicious focal lesions. IMPRESSION: 1. No acute traumatic abnormality within the chest, abdomen, or pelvis. Dictated by: Nima Galeano M.D. on 09/06/2022 at 21:22 Approved by: Nima Galeano M.D. on 09/06/2022 at 21:26
[2022-09-06] MEDS: HYDROMORPHONE 0.5 MG INJ IV (20:47)
[2022-09-06] MEDS: ONDANSETRON 4 MG/2 ML INJ IV (20:47)
[2022-09-06] MEDS: SODIUM CHLORIDE 0.9% 1,000 ML 1000 ML IV (20:52)
[2022-09-06 21:16] LABS: Add Manual Diff / Slide Review NO; Basophils Absolute Auto 100 /uL (0-100); Basophils Percent Auto 0.4 % (0-2); Eosinophils Absolute Auto 0 /uL (0-450); Eosinophils Percent Auto 0.2 % (2-4); Hematocrit 39.5 % (36-46); Lymphocytes Absolute Auto 1400 /uL (1100-4500); Lymphocytes Percent Auto 9.7 % (25-40); Mean Corpuscular Hemoglobin 29.4 PG (26-34); Mean Corpuscular Volume 89.1 fL (80-100); Monocytes Absolute Auto 600 /uL (0-900); Monocytes Percent Auto 4.4 % (3-14); Neutrophils Absolute Auto 12200 /uL (1500-7000); Neutrophils Percent Auto 85.3 % (50-75); Platelet Count 363 X10^3/uL (150-400); Red Blood Cell Count 4.43 X10^6/uL (4.0-5.2); Red Cell Distribution Width 13.4 % (11.6-14.8); White Blood Cell Count 14.3 X10^3/uL (4.5-11.0)
[2022-09-06 21:19] LABS: Alanine Aminotransferase 35 IU/L (<35); Albumin 4.9 g/dL (3.5-5.0); Albumin Globulin Ratio 1.6 (1.0-2.8); Alkaline Phosphatase 92 U/L (38-126); Aspartate Aminotransferase 55 IU/L (14-36); BUN Creatinine Ratio 19.8 (6-22); Bilirubin Total 0.5 mg/dL (0.2-1.3); Blood Urea Nitrogen 16 mg/dL (7-17); Calcium 9.7 mg/dL (8.4-10.2); Carbon Dioxide 29 mmol/L (22-32); Chloride 103 mmol/L (98-107); Estimated Glomerular Filt Rate > 60 mL/min (>60); Globulin 3.1 g/dL (1.7-4.1); Glucose 119 mg/dL (80-110); HEMOLYSIS < 15 (0-50); Lipase 188 U/L (23-300); Potassium 4.8 mmol/L (3.4-5.1); Sodium 140 mmol/L (137-145)
[2022-09-06 21:55] VITALS: BP 161/79; PULSE 54; RESP 18; O2SAT 99
[2022-09-06 23:30] VITALS: BP 167/77; PULSE 51; RESP 18; O2SAT 99
[2022-09-06] MEDS: KETOROLAC 30 MG/ML VIAL 15 MG IV (23:35)
[2022-09-06] MEDS: OXYCODONE/ACETAMINOPHEN 5/325 TABLET 1 TAB PO (23:35)
[2022-09-06] MEDS: OXYCODONE/APAP 5/325 PREPACK 1 BOTTLE MISC (23:35)
== END 2022-09-06 23:40 | disposition home or self-care (01) ==
PROVIDERS: Emergency Provider Emergency Medicine; PCP Family Medicine
DX: S20.222A Contusion of left back wall of thorax, initial encounter (principal); S20.211A Contusion of right front wall of thorax, initial encounter; W11.XXXA Fall on and from ladder, initial encounter
CPT/HCPCS: 36415; 71260; 74177; 80053; 81003; 83690; 85025; 96361; 96374; 96375; 99284; J1170; J1885; J2405; Q9967

== ENCOUNTER → 2022-10-26 10:17 | Outpatient (CLI) | payer MEDICARE, OTHER, SELFPAY ==
[2022-10-26 11:51] LABS: Add Manual Diff / Slide Review NO; Basophils Absolute Auto 100 /uL (0-100); Basophils Percent Auto 1.7 % (0-2); Eosinophils Absolute Auto 100 /uL (0-450); Eosinophils Percent Auto 3.1 % (2-4); Hematocrit 38.6 % (36-46); Lymphocytes Absolute Auto 1600 /uL (1100-4500); Lymphocytes Percent Auto 38.2 % (25-40); Mean Corpuscular HGB Conc 33.7 % (30-36); Mean Corpuscular Hemoglobin 29.9 PG (26-34); Mean Corpuscular Volume 88.8 fL (80-100); Monocytes Absolute Auto 400 /uL (0-900); Monocytes Percent Auto 9.8 % (3-14); Neutrophils Absolute Auto 1900 /uL (1500-7000); Neutrophils Percent Auto 47.2 % (50-75); Platelet Count 329 X10^3/uL (150-400); Red Blood Cell Count 4.34 X10^6/uL (4.0-5.2); Red Cell Distribution Width 13.1 % (11.6-14.8); White Blood Cell Count 4.1 X10^3/uL (4.5-11.0)
[2022-10-26 11:53] LABS: Alanine Aminotransferase 20 IU/L (<35); Albumin 4.5 g/dL (3.5-5.0); Albumin Globulin Ratio 1.6 (1.0-2.8); Alkaline Phosphatase 77 U/L (38-126); Aspartate Aminotransferase 30 IU/L (14-36); BUN Creatinine Ratio 13.5 (6-22); Bilirubin Total 0.6 mg/dL (0.2-1.3); Blood Urea Nitrogen 10 mg/dL (7-17); Calcium 9.5 mg/dL (8.4-10.2); Carbon Dioxide 31 mmol/L (22-32); Chloride 103 mmol/L (98-107); Cholesterol 241 mg/dL (140-199); Estimated Glomerular Filt Rate > 60 mL/min (>60); Globulin 2.8 g/dL (1.7-4.1); Glucose 93 mg/dL (80-110); HDL Cholesterol 70 mg/dL (40-60); HEMOLYSIS < 15 (0-50); LDL Cholesterol Calculated 151 mg/dL (<100); Potassium 4.2 mmol/L (3.4-5.1); Sodium 140 mmol/L (137-145); Total Protein 7.3 g/dL (6.3-8.2); Triglycerides 98 mg/dL (35-150)
[2022-10-26 12:50] LABS: Hep C Virus Ab w/Reflex Quant NEGATIVE s/c (NEGATIVE)
== END ==
PROVIDERS: PCP Family Medicine; Referring Provider Family Medicine; Visit Provider Family Medicine
DX: D72.819 Decreased white blood cell count, unspecified (principal); D72.829 Elevated white blood cell count, unspecified; E04.1 Nontoxic single thyroid nodule; R23.2 Flushing
CPT/HCPCS: 36415; 80053; 80061; 85025; 86803

== ENCOUNTER → 2022-11-05 11:15 | Outpatient (CLI) | payer MEDICARE, OTHER, SELFPAY ==
--- NOTE | 2022-11-05 11:17 | DI.US.S_ITS ---
PROCEDURE: US THYROID INDICATIONS: thyroid nodules TECHNIQUE: Real-time scanning was performed of the thyroid gland, with image documentation. COMPARISON: [facility], US, US THYROID, 11/03/2021, 9:04. FINDINGS: Right: Thyroid lobe measures 4.9 x 1.8 x 2.0 cm, and is homogeneous in echotexture. Left: Thyroid lobe measures 4.6 x 1.2 x 1.5 cm, and is homogenous in echotexture. Isthmus: Three mm thick. Nodule number: 1 Location: Left midpole Size: 0.9 x 0.5 x 0.8 cm, previously 1.0 x 0.5 x 0.8 cm. Composition: Mixed cystic and solid Echogenicity: Hypoechoic Shape: wider than tall. Margins: Smooth Echogenic foci: No Total points: Three ACR TI-RADS category: Moderately suspicious Nodule number: 2 Location: Left midpole Size: 0.5 x 0.2 x 0.5 cm. Composition: Solid Echogenicity: Hypoechoic Shape: wider than tall. Margins: Smooth Echogenic foci: No Total points: Four ACR TI-RADS category: Moderately suspicious Nodule number: 3 Location: Right midpole Size: 1.4 x 1.7 x 1.0 cm, previously 2.1 x 1.7 x 1.2 cm. Composition: Mixed cystic and solid Echogenicity: Hypoechoic and anechoic Shape: wider than tall. Margins: Smooth Echogenic foci: No Total points: Three ACR TI-RADS category: Mildly suspicious. Nodule number: 4 Location: Right inferior Size: 0.7 x 0.4 x 0.6 cm, previously 0.8 x 0.5 x 0.6 cm. Composition: Solid Echogenicity: Isoechoic Shape: wider than tall. Margins: Smooth Echogenic foci: No Total points: Three ACR TI-RADS category: Mildly suspicious IMPRESSION: 1. Stable bilateral thyroid nodules, the largest with mixed cystic and solid characteristics, one of which previously has been biopsied. 2. Continue imaging surveillance for total of five years. ACR TI-RADS definitions and recommendations: TI-RADS 1 (benign): 0 points. FNA not needed. TI-RADS 2 (not suspicious): 2 points. FNA not needed. TI-RADS 3 (mildly suspicious): 3 points. * FNA if 2.5 cm or larger, follow up if 1.5 cm or larger (at 1, 3, and 5 years). TI-RADS 4 (moderately suspicious): 4-6 points. * FNA if 1.5 cm or larger, follow up if 1 cm or larger (at 1, 2, 3, and 5 years). TI-RADS 5 (highly suspicious): 7 points or more. * FNA if 1 cm or larger, follow up if 0.5 cm or larger (every year for 5 years). Dictated by: Melissa Malone M.D. on 11/05/2022 at 16:23 Approved by: Melissa Malone M.D. on 11/05/2022 at 16:33
--- NOTE | 2022-11-05 11:17 | DI.MG.S_ITS ---
BILATERAL DIGITAL SCREENING MAMMOGRAM 3D/2D WITH CAD: 11/05/2022 CLINICAL: Routine screening. Family history of breast cancer. Comparison is made to exams dated: 08/27/2021 mammogram - [facility], 06/24/2020 mammogram - [facility], and 06/13/2019 mammogram - [facility]. Both breasts are heterogeneously dense, which may obscure small masses (category c / 51-75% glandular tissue). Current study was also evaluated with a Computer Aided Detection (CAD) system. There is possible architectural distortion in the right breast at 1 o'clock middle depth. No other significant masses, calcifications, or other findings are seen in either breast. IMPRESSION: INCOMPLETE: NEEDS ADDITIONAL IMAGING EVALUATION The possible architectural distortion in the right breast is indeterminate. Additional views with possible ultrasound are recommended. Based on the Tyrer Cuzick model (a risk assessment model) the patient's lifetime risk is 19.8% and her 10 year risk is 9.9%. According to the ACR, ACS, and NCCN guidelines, an annual breast MRI exam along with mammogram is recommended if the patient's lifetime risk is 20% or greater. This exam was interpreted at Station ID: [id number]. NOTE: For mammograms, a report in lay terms will be sent to the patient. Approximately 15% of breast malignancies will not be visualized mammographically. In the management of a palpable breast mass, a negative mammogram must not discourage biopsy of a clinically suspicious lesion. Electronically Signed By: Kay fuentes/jesús:11/05/2022 15:38:19 letter sent: Additional Imaging Needed ACR BI-RADS Category 0: Incomplete [id number]
--- NOTE | 2022-11-05 12:18 | DI.DEXA.S_ITS ---
Bone Density Report Name: PATTY BENNETT Age: 67 Sex: Female Ethnicity: White Date of : 1955 Indication: postmenopausal; screening for osteoporosis; Referring Provider: JING LYMAN Study: Bone densitometry was performed. Exam Date: November 05, 2022 Accession number: [id number] Bone Density: Region BMD T-score Z-score Classification AP Spine(L1-L4) 0.755 -2.7 -0.9 Osteoporosis Femoral Neck (Left) 0.679 -1.5 0.0 Osteopenia Total Hip (Left) 0.773 -1.4 -0.2 Osteopenia Femoral Neck (Right) 0.703 -1.3 0.2 Osteopenia Total Hip (Right) 0.753 -1.5 -0.3 Osteopenia Total Hip Mean 0.763 -1.5 -0.3 Osteopenia World Health Organization criteria for BMD impression classify patients as: Normal (T-score at or above -1.0), Osteopenia (T-score between -1.0 and -2.5), or Osteoporosis (T-score at or below -2.5). 10-year Fracture Risk: FRAX not reported because: Some T-score for Spine Total or Hip Total or Femoral Neck at or below -2.5 Impression: The patient has osteoporosis, based on the Total Spine T-score. Discussion: INCREASED RISK OF FRACTURE. BONE DENSITY IS UNDESIRABLY LOW AT ONE OR MORE SKELETAL SITES, CONSISTENT WITH POSTMENOPAUSAL OSTEOPOROSIS. This patient's lowest T-score meets the World Health Organization's (WHO) criteria for osteoporosis at one or more sites (T-score -2.5 or below). In untreated patients, the risk of osteoporotic fracture increases approximately two-fold for each 1.0 SD decrease in T-score. Low bone density is not the only risk factor for fracture; also consider factors such as patient's age, frailty or poor health, risk of falling, risk of injury, previous osteoporotic fracture, family history of osteoporosis, cigarette smoking, low body weight, etc. Not everyone with low bone mineral density has osteoporosis; osteomalacia and other metabolic bone disorders should also be considered. Patients who have osteoporosis should be evaluated for specific diseases and conditions (secondary causes) that may cause or contribute to bone loss. The [place] Association [employer] Clinical Endocrinologists (AACE) and National Osteoporosis Foundation (NOF) recommend pharmacologic intervention for all postmenopausal women whose T-score is in this range. The patient should follow a healthful lifestyle (good nutrition with adequate calcium and vitamin D, and appropriate weight-bearing exercise). Follow-Up: Consider a repeat BMD and Vertebral Fracture Assessment (VFA) exam in 2 years or sooner if medically necessary, to reassess this patient's status. Reported by: JANN SHARPE M.D. on 11/05/2022 12:31:00 PM.
== END ==
PROVIDERS: PCP Family Medicine; Referring Provider Family Medicine; Visit Provider Family Medicine
DX: Z12.31 Encounter for screening mammogram for malignant neoplasm of breast (principal); E04.2 Nontoxic multinodular goiter; Z13.820 Encounter for screening for osteoporosis; M81.0 Age-related osteoporosis without current pathological fracture; Z78.0 Asymptomatic menopausal state; D72.819 Decreased white blood cell count, unspecified; Z80.3 Family history of malignant neoplasm of breast; D72.829 Elevated white blood cell count, unspecified; R23.2 Flushing
CPT/HCPCS: 76536; 77063; 77067; 77080

== ENCOUNTER → 2022-11-11 09:18 | Outpatient (CLI) | payer MEDICARE, OTHER, SELFPAY ==
--- NOTE | 2022-11-11 | DI.MG.S_ITS ---
UNILATERAL RIGHT DIGITAL DIAGNOSTIC MAMMOGRAM 3D/2D WITH ADDITIONAL VIEWS: 11/11/2022 CLINICAL: Additional evaluation requested from prior study. Comparison is made to exams dated: 11/05/2022 mammogram - [facility], 08/27/2021 mammogram - [facility], and 06/24/2020 mammogram - [facility]. The right breast is heterogeneously dense, which may obscure small masses (category c / 51-75% glandular tissue). The possible architectural distortion in the right breast at 1 o'clock middle depth is no longer seen and is consistent with a previous biopsy track or fibrocystic tissue. This is not reproduced with additional views. There is a biopsy clip deep to the area of previous architectural distortion. No other significant masses or calcifications are seen in the breast. IMPRESSION: BENIGN No persistent mammographic abnormality with additional views. There is no mammographic evidence of malignancy. Return to annual mammogram screening schedule is recommended. Findings and recommendations were conveyed to the patient at time of exam. Based on the Tyrer Cuzick model (a risk assessment model) the patient's lifetime risk is 19.8% and her 10 year risk is 9.9%. According to the ACR, ACS, and NCCN guidelines, an annual breast MRI exam along with mammogram is recommended if the patient's lifetime risk is 20% or greater. This exam was interpreted at Station ID: [id number]. NOTE: For mammograms, a report in lay terms will be sent to the patient. Approximately 15% of breast malignancies will not be visualized mammographically. In the management of a palpable breast mass, a negative mammogram must not discourage biopsy of a clinically suspicious lesion. Electronically Signed By: Melissa whitney/:11/11/2022 10:02:10 letter sent: Normal Exam ACR BI-RADS Category 2: Benign Finding(s) 3342F
== END ==
PROVIDERS: PCP Family Medicine; Referring Provider Family Medicine; Visit Provider Family Medicine
DX: R92.8 Other abnormal and inconclusive findings on diagnostic imaging of breast (principal); N63.12 Unspecified lump in the right breast, upper inner quadrant
CPT/HCPCS: 77065; G0279

== ENCOUNTER → 2023-05-30 07:53 | Outpatient (CLI) | payer MEDICARE, OTHER, SELFPAY ==
[2023-05-30 08:44] LABS: Add Manual Diff / Slide Review NO; Basophils Absolute Auto 100 /uL (0-100); Basophils Percent Auto 1.5 % (0-2); Eosinophils Absolute Auto 300 /uL (0-450); Eosinophils Percent Auto 5.7 % (2-4); Hematocrit 38.6 % (36-46); Hemoglobin 12.9 g/dL (12.0-16.0); Lymphocytes Absolute Auto 1800 /uL (1100-4500); Lymphocytes Percent Auto 35.7 % (25-40); Mean Corpuscular HGB Conc 33.4 % (30-36); Mean Corpuscular Hemoglobin 29.3 PG (26-34); Mean Corpuscular Volume 87.9 fL (80-100); Monocytes Absolute Auto 500 /uL (0-900); Monocytes Percent Auto 10.2 % (3-14); Neutrophils Absolute Auto 2300 /uL (1500-7000); Neutrophils Percent Auto 46.9 % (50-75); Platelet Count 319 X10^3/uL (150-400); Red Blood Cell Count 4.39 X10^6/uL (4.0-5.2); White Blood Cell Count 4.9 X10^3/uL (4.5-11.0)
[2023-05-30 08:59] LABS: Alanine Aminotransferase 16 IU/L (<35); Albumin 4.3 g/dL (3.5-5.0); Albumin Globulin Ratio 1.5 (1.0-2.8); Alkaline Phosphatase 76 U/L (38-126); Aspartate Aminotransferase 28 IU/L (14-36); BUN Creatinine Ratio 12.5 (6-22); Bilirubin Total 0.7 mg/dL (0.2-1.3); Blood Urea Nitrogen 10 mg/dL (7-17); Calcium 9.8 mg/dL (8.4-10.2); Carbon Dioxide 29 mmol/L (22-32); Chloride 103 mmol/L (98-107); Cholesterol 220 mg/dL (140-199); Estimated Glomerular Filt Rate > 60 mL/min (>60); Globulin 2.8 g/dL (1.7-4.1); Glucose 88 mg/dL (80-110); HDL Cholesterol 63 mg/dL (40-60); HEMOLYSIS < 15 (0-50); LDL Cholesterol Calculated 133 mg/dL (<100); Potassium 4.4 mmol/L (3.4-5.1); Sodium 140 mmol/L (137-145); Total Protein 7.1 g/dL (6.3-8.2); Triglycerides 120 mg/dL (35-150)
[2023-05-30 09:30] LABS: TSH w/ Reflex to FT4 2.21 uIU/mL (0.47-4.68)
[2023-05-30 09:48] LABS: Vitamin B12 874 pg/mL (239-931)
== END ==
PROVIDERS: PCP Family Medicine; Referring Provider Physician Assistant; Visit Provider Physician Assistant
DX: D72.819 Decreased white blood cell count, unspecified (principal); E78.5 Hyperlipidemia, unspecified; E04.1 Nontoxic single thyroid nodule; D51.8 Other vitamin B12 deficiency anemias
CPT/HCPCS: 36415; 80053; 80061; 82607; 84443; 85025

== ENCOUNTER → 2023-07-07 11:22 | Outpatient (CLI) | payer MEDICARE, OTHER, SELFPAY ==
[2023-07-07 13:31] LABS: HEMOLYSIS < 15 (0-50); Iron 113 ug/dL (37-170)
[2023-07-07 13:41] LABS: C-Reactive Protein Quant < 0.5 mg/dL (<1.0); Percent Iron Saturation 39 % (15-50); Total Iron Binding Capacity 290 ug/dL (265-497); Transferrin 234 mg/dL (206-381)
[2023-07-07 14:07] LABS: Ferritin 55 ng/mL (11-264)
== END ==
PROVIDERS: PCP Family Medicine; Referring Provider Pediatrics; Visit Provider Pediatrics
DX: D50.9 Iron deficiency anemia, unspecified (principal); G25.81 Restless legs syndrome
CPT/HCPCS: 36415; 82728; 83540; 83550; 86140

== ENCOUNTER → 2023-10-14 14:38 | Outpatient (CLI) | payer MEDICARE, OTHER, SELFPAY ==
--- NOTE | 2023-10-14 14:39 | DI.US.S_ITS ---
PROCEDURE: US THYROID INDICATIONS: FOLLOW-UP TECHNIQUE: Real-time scanning was performed of the thyroid gland, with image documentation. COMPARISON: [facility], [place]YROID, 10/29/2020, 16:20. [facility]YROID, 11/05/2022, 11:34. FINDINGS: Thyroid: Right lobe measures 5.2 x 1.6 x 1.7 cm. Left lobe measures 5.2 x 1.1 x 1.6 cm. Isthmus is 0.2 cm thick. Echotexture is fairly homogeneous. Nodule number: 1 Location: Left midpole Size: 0.8 x 0.4 x 0.6 cm, previously 0.9 x 0.5 x 0.8 cm. . Composition: Mixed cystic and solid, decreased cystic component Echogenicity: Hypoechoic and anechoic Shape: wider than tall. Margins: Smooth Echogenic foci: Coarse Total points: 4 ACR TI-RADS category: Moderately suspicious Nodule number: 2 Location: Left midpole Size: 0.6 x 0.3 x 0.5 cm, previously 0.5 x 0.2 x 0.5 cm. Composition: Solid Echogenicity: Hypoechoic Shape: wider than tall. Margins: Smooth Echogenic foci: Not Total points: 4 ACR TI-RADS category: Moderately suspicious Nodule number: 3 Location: Right inferior pole Size: 0.8 x 0.4 x 0.5 cm, previously 0.7 x 0.4 x 0.6 cm. Composition: Solid Echogenicity: Isoechoic Shape: wider than tall. Margins: Smooth Echogenic foci: Punctate Total points: Six ACR TI-RADS category: Moderately suspicious Nodule number: 4 Location: Right midpole Size: 1.8 x 0.9 x 1.2 cm, previously 1.6 x 1.0 x 1.4 Composition: Mixed cystic and solid Echogenicity: Hypoechoic and anechoic Shape: wider than tall. Margins: Smooth Echogenic foci: Punctate, comet tail artifact. Total points: Five ACR TI-RADS category: Moderately suspicious IMPRESSION: No significant change to four moderately suspicious bilateral thyroid nodules. Follow-up ultrasound in one year to complete five year follow-up. ACR TI-RADS definitions and recommendations: TI-RADS 1 (benign): 0 points. FNA not needed. TI-RADS 2 (not suspicious): 2 points. FNA not needed. TI-RADS 3 (mildly suspicious): 3 points. * FNA if 2.5 cm or larger, follow up if 1.5 cm or larger (at 1, 3, and 5 years). TI-RADS 4 (moderately suspicious): 4-6 points. * FNA if 1.5 cm or larger, follow up if 1 cm or larger (at 1, 2, 3, and 5 years). TI-RADS 5 (highly suspicious): 7 points or more. * FNA if 1 cm or larger, follow up if 0.5 cm or larger (every year for 5 years). Dictated by: Melissa Malone M.D. on 10/14/2023 at 18:01 Approved by: Melissa Malone M.D. on 10/14/2023 at 18:13
== END ==
PROVIDERS: PCP Family Medicine; Referring Provider Family Medicine; Visit Provider Family Medicine
DX: E04.2 Nontoxic multinodular goiter (principal)
CPT/HCPCS: 76536

== ENCOUNTER → 2023-11-11 15:36 | Outpatient (CLI) | payer MEDICARE, OTHER, SELFPAY ==
--- NOTE | 2023-11-11 15:37 | DI.MG.S_ITS ---
BILATERAL DIGITAL SCREENING MAMMOGRAM 3D/2D WITH CAD: 11/11/2023 CLINICAL: Routine screening. Family history of breast cancer. Comparison is made to exams dated: 11/05/2022 mammogram - [facility], 08/27/2021 mammogram - [facility], and 06/24/2020 mammogram - [facility]. Both breasts are heterogeneously dense, which may obscure small masses (category c / 51-75% glandular tissue). Current study was also evaluated with a Computer Aided Detection (CAD) system. No significant masses, calcifications, or other findings are seen in either breast. There has been no significant interval change. IMPRESSION: NEGATIVE There is no mammographic evidence of malignancy. A 1 year screening mammogram is recommended. Based on the Tyrer Cuzick model (a risk assessment model) the patient's lifetime risk is 19.0% and her 10 year risk is 9.8%. According to the ACR, ACS, and NCCN guidelines, an annual breast MRI exam along with mammogram is recommended if the patient's lifetime risk is 20% or greater. This exam was interpreted at Station ID: [id number]. NOTE: For mammograms, a report in lay terms will be sent to the patient. Approximately 15% of breast malignancies will not be visualized mammographically. In the management of a palpable breast mass, a negative mammogram must not discourage biopsy of a clinically suspicious lesion. Electronically Signed By: Shree sandhu/jesús:11/14/2023 07:27:03 letter sent: Normal Exam ACR BI-RADS Category 1: Negative 3341F
== END ==
PROVIDERS: PCP Family Medicine; Referring Provider Family Medicine; Visit Provider Family Medicine
DX: Z12.31 Encounter for screening mammogram for malignant neoplasm of breast (principal); Z80.3 Family history of malignant neoplasm of breast; R92.333 Mammographic heterogeneous density, bilateral breasts
CPT/HCPCS: 77063; 77067

== ENCOUNTER 2023-12-19 07:08 | Emergency (ER) | payer MEDICARE, OTHER, SELFPAY ==
[2023-12-19] VITALS (9 sets, daily range): BP systolic 157–201; BP diastolic 77–112; PULSE 47–71; RESP 15–31; TEMP 36.8; O2SAT 97–100; BMI 21.2
--- NOTE | 2023-12-19 07:17 | EKG_ITS ---
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
--- NOTE | 2023-12-19 07:22 | ED.CHESTPAIN ---
HPI - Chest Pain General Chief Complaint: Chest Pain Stated Complaint: chest pain, hbp Time Seen by Provider: 12/19/23 07:22 History of Present Illness HPI narrative: Patient is a 68-year-old female with no significant past medical history, comes into the ED from home for evaluation of multiple complaints. She states that she has been feeling this whole body pressure ongoing and persistent for the past several months, states that she has been worked up for this by her PCP And has seen specialists and everything has been ?fine. She states that today she woke up felt like the whole-body sensation was worse, states that it was including her chest therefore she was worried that something might be wrong with her heart. Currently she states that the pain is not as bad as it was before, states that it was at her ?baseline she states that she was also worried so she checked her blood pressure for the 1st time this morning and stated that it was in the 170s systolic we therefore was scared and came into the ED. She denies any symptoms such as headache visual disturbances shortness of breath or any other symptoms at this time. No trauma no falls not on any blood thinners Related Data Home Medications Medication Instructions Recorded Confirmed trazodone 50 mg tablet 25 mg PO ONCE PM PRN 10/18/23 10/18/23 Previous Rx's Medication Instructions Recorded valacyclovir 1 gram tablet See Rx Instructions .Route 08/12/23 .COMPLEX #14 tabs benzonatate 200 mg capsule 200 mg PO TID PRN cough #30 caps 10/18/23 Allergies Allergy/AdvReac Type Severity Reaction Status Date / Time codeine Allergy Mild itchy, Verified 10/18/23 10:22 jumpy Sulfa (Sulfonamide Allergy Mild GI Upset Verified 10/18/23 10:22 Antibiotics) Review of Systems Review of Systems Narrative: HEENT: Denies headache, eye drainage, eye irritation, head trauma, sore throat, voice change Cardiovascular: Denies any chest pain, palpitations, shortness of breath, tachycardia. Positive chest tightness Respiratory: Denies any shortness of breath, cough, wheeze, stridor GI/: Denies any abdominal pain, nausea, vomiting, diarrhea, bright red blood per rectum, melanotic stools, urinary frequency, urinary retention, dysuria, hematuria MSK: Denies any joint pain, muscle pains, swelling Skin: Denies any rashes, lesions, discoloration Neuro: Denies any headache, lightheadedness, dizziness, fainting, weakness Psych: Denies SI/HI Patient History Medical History (Updated 12/19/23 @ 09:51 by Jayme Oshea DO) COVID-19 Bilateral nonpulsatile tinnitus Left foot pain Hot flashes Palpitations Thyroid nodule Chronic sinusitis Osteopenia Acute maxillary sinusitis Spasm of back muscles Degenerative arthritis of lumbar spine Low back pain Vasomotor symptoms due to menopause Tennis elbow Insomnia Skin tags, multiple acquired Nearsightedness Dupuytren's contracture Mumps Measles Chicken pox Ovarian cyst Herpes Heavy menstrual period Fibroids Skin cancer Surgical History Anesthesia History of hysterectomy with oophorectomy (~2019) History of elbow surgery Family History Father Hypertension Mental health problem Mother Cancer Hypertension Sister Hypertension Sister Hypertension Grandfather Stroke Grandmother No problems noted. Grandfather Parkinson's disease Social History Smoking Status: Never smoker Smoking Status: Never smoker Exam Narrative Exam Narrative: General: Cooperative, comfortable, well-developed, not in acute distress HEENT: Normocephalic, atraumatic, PERRLA, normal sclera, eyelids normal, Neck: Active full range of motion, atraumatic Chest: Normal to inspection, negative crepitus, no overlying erythema ecchymosis Respiratory: Normal respiratory effort, not in acute respiratory distress, clear to auscultation bilaterally negative cough, wheeze, tachypnea, rhonchi, rales Cardiology: Regular rate rhythm negative gallop, murmur, rubs GI/: Normal to inspection, soft, nonrigid, no tenderness to palpation, exam deferred MSK: Full range of active range of motion of all 4 extremities, atraumatic Skin: No rashes lesions noted Neuro: Alert awake oriented x3, moves all 4 extremities spontaneously, cranial nerves intact, able to answer all questions appropriately follows commands appropriately Psych: Cooperative, negative suicidal or homicidal ideations Initial Vital Signs Initial Vital Signs: Vital Signs Pulse Oximetry 99 12/19/23 07:13 Scores HEART Score Heart Score history: Slightly Suspicious Heart Score EKG: Normal Heart Score Age: > or = 65 years old Heart Score risk factors: No known risk factors Heart Score troponin: < or = to normal limit Heart Score Total: 2 Course Orders Ordered: ED Orders 12/19/23 07:23 XR chest 1V Stat Complete Blood Count AUTO DIFF Stat Comprehensive Metabolic Panel Stat Lipase Stat Magnesium Stat NT-proBNP (BNP-Adult 18+) Stat PTT Partial Thromboplastin Nicola Stat Prothrombin Time INR Stat Troponin & CK Cardiac Panel Stat EKG-12 Lead Stat 12/19/23 07:36 Covid-19 + FLU A/B + RSV - PCR Stat Famotidine (Famotidine 20 Mg/2 Ml Vial) 20 mg IV NOW HELEN Last Admin: 12/19/23 07:34 Dose: 20 mg Documented By: CTS Discontinued Medications Aspirin (Aspirin 81 Mg Chew Tab) 324 mg PO NOW ONE Stop: 12/19/23 07:24 Last Admin: 12/19/23 07:34 Dose: 324 mg Documented By: CTS Vital Signs Vital signs: Vital Signs - 8 hr 12/19/23 07:13 12/19/23 07:14 12/19/23 07:14 Temperature Pulse Rate 71 Respiratory Rate Blood Pressure 201/112 H Pulse Oximetry 99 99 Oxygen Delivery Method 12/19/23 07:16 12/19/23 07:16 12/19/23 07:17 Temperature 98.3 F Pulse Rate 65 66 Respiratory Rate 15 16 Blood Pressure 191/96 H 191/96 H Pulse Oximetry 100 98 Oxygen Delivery Method Room Air 12/19/23 07:30 12/19/23 07:30 12/19/23 08:00 Temperature Pulse Rate 69 Respiratory Rate 31 H Blood Pressure 168/105 H 162/89 H Pulse Oximetry 100 Oxygen Delivery Method 12/19/23 08:00 12/19/23 08:30 12/19/23 08:30 Temperature Pulse Rate 54 L 50 L Respiratory Rate 16 Blood Pressure 158/82 H Pulse Oximetry 99 98 Oxygen Delivery Method 12/19/23 09:00 12/19/23 09:00 Temperature Pulse Rate 47 L Respiratory Rate 16 Blood Pressure 157/78 H Pulse Oximetry 97 Oxygen Delivery Method MDM - Chest Pain Differential Diagnosis Differential diagnosis: Likely pneumothorax, atypical chest pain, costochondritis and chest pain Medical Records Data Attestation: I reviewed the patient's medical records. Lab Data Attestation: I reviewed the patient's lab results. 12/19/23 07:23 12/19/23 07:23 Labs: Lab Results 12/19/23 Range/Units 07:23 WBC 5.7 (4.5-11.0) X10^3/uL RBC 4.28 (4.0-5.2) X10^6/uL Hgb 12.8 (12.0-16.0) g/dL Hct 38.5 (36-46) % MCV 89.9 (80-100) fL MCH 30.0 (26-34) PG MCHC 33.3 (30-36) % RDW 13.3 (11.6-14.8) % Plt Count 301 (150-400) X10^3/uL Neut % (Auto) 48.7 L (50-75) % Lymph % (Auto) 39.0 (25-40) % [place] % (Auto) 8.0 (3-14) % Eos % (Auto) 3.2 (2-4) % Baso % (Auto) 1.1 (0-2) % Neut # (Auto) 2800 (8724-6812) /uL Lymph # (Auto) 2200 (4951-1742) /uL [place] # (Auto) 500 (0-900) /uL Eos # (Auto) 200 (0-450) /uL Baso # (Auto) 100 (0-100) /uL PT 11.1 (9.4-12.5) SECONDS INR 1.0 (0.9-1.3) APTT 36 (25.1-36.5) SECONDS Sodium 138 (137-145) mmol/L Potassium 3.8 (3.4-5.1) mmol/L Chloride 106 (98-107) mmol/L Carbon Dioxide 27 (22-32) mmol/L BUN 10 (7-17) mg/dL Creatinine 0.72 (0.52-1.04) mg/dL Estimated GFR > 60 (>60) mL/min BUN/Creatinine Ratio 13.9 (6-22) Glucose 95 (80-110) mg/dL Calcium 9.3 (8.4-10.2) mg/dL Magnesium 2.1 (1.6-2.3) mg/dL Total Bilirubin 0.5 (0.2-1.3) mg/dL AST 31 (14-36) IU/L ALT 18 (<35) IU/L Alkaline Phosphatase 76 (38-126) U/L Total Creatine Kinase 100 (30-135) U/L Troponin I < 0.012 (0.01-0.034) ng/mL NT-Pro-B Natriuret Pep 204 H (<125) pg/mL Total Protein 7.1 (6.3-8.2) g/dL Albumin 4.2 (3.5-5.0) g/dL Globulin 2.9 (1.7-4.1) g/dL Albumin/Globulin Ratio 1.4 (1.0-2.8) Lipase 74 (23-300) U/L Imaging Data Chest x-ray: Radiologist's Impression: PROCEDURE: XR CHEST 1V INDICATIONS: chest pain TECHNIQUE: One view of the chest was acquired. COMPARISON: [facility], , XR CHEST 2V, 04/25/2020, 10:16. FINDINGS: Surgical changes and devices: None. Lungs and pleura: No pneumothorax, no pleural effusion, no focal consolidation. Mediastinum: Mediastinal contours appear normal. Cardiopericardial silhouette and pulmonary vasculature within normal limits. Bones and chest wall: Mild degenerative changes of the thoracic spine and shoulders. IMPRESSION: No radiographic evidence of acute abnormality. Dictated by: Brayan Mendez M.D. on 12/19/2023 at 8:08 Approved by: Brayan Mendez M.D. on 12/19/2023 at 8:10 ECG Data Attestation: I personally reviewed and interpreted this ECG as follows: Interpretation: EKG interpreted by ED physician sinuses 69 beats per minute QTC 443, normal axis, nonspecific ST changes no STEMI MDM Narrative Medical decision making narrative: Patient is a 68-year-old female no significant past medical history came into the ED for multiple complaints. States that her whole-body has been feeling a ?pressure/weird sensation ongoing persistent for the past several months. Has seen multiple specialists for this including but not limited to rheumatology. She states that they have told her everything was ?fine. She presented due to the fact that she started feeling this pressure all over body and specifically in her chest was also worried that her blood pressure was elevated but did not have any focal neurological deficits and patient without any actual true chest pain no shortness of breath. Patient with a heart score of 2 for age. Lab work and imaging without any acute findings, patient states that she will follow-up with her primary care doctor for results of COVID flu. I did inform patient to follow up with PCP and cardiology in an outpatient setting she verbalized understanding of this and agrees to being discharged home with outpatient follow-up Discharge Plan Departure Patient Disposition: Home Clinical Impression: Chest pain Qualifiers: Chest pain type: other chest pain Qualified Code(s): R07.89 - Other chest pain Activity Restrictions/Additional Instructions: Please read the discharge instructions sheet carefully and bring all papers to all doctor follow-up visits, as it may contain information that your doctor may want to see. Disease processes change and evolve, if your symptoms worsen or if you develop any new symptoms that are concerning to you please return for evaluation. Your evaluation today does not show any evidence of any life-threatening/serious illnesses requiring admission to the hospital or surgery. Please follow-up with your doctor for re-evaluation in approximately 1 day. Seek immediate medical attention for any worrisome symptoms. Prescriptions: No Action valacyclovir 1 gram tablet See Rx Instructions .ROUTE .COMPLEX Qty: 14 2RF Dose Instruction: Take 1 tablet (1,000 mg) by mouth 2 times daily Rx Instructions: Take 1 tablet (1,000 mg) by mouth 2 times daily trazodone 50 mg tablet 25 mg PO ONCE PM PRN benzonatate 200 mg capsule 200 mg PO TID PRN (Reason: cough) Qty: 30 0RF Rx Instructions: Take one capsule up to 3 times a day as needed for cough Referrals: Aj Randall MD [Primary Care Provider] - Tayo Lilly MD [Physician] - Stand Alone Forms: Patient Portal/API
[2023-12-19 07:32] LABS: Add Manual Diff / Slide Review NO; Basophils Absolute Auto 100 /uL (0-100); Basophils Percent Auto 1.1 % (0-2); Eosinophils Absolute Auto 200 /uL (0-450); Eosinophils Percent Auto 3.2 % (2-4); Hematocrit 38.5 % (36-46); Hemoglobin 12.8 g/dL (12.0-16.0); Lymphocytes Absolute Auto 2200 /uL (1100-4500); Mean Corpuscular HGB Conc 33.3 % (30-36); Mean Corpuscular Volume 89.9 fL (80-100); Monocytes Absolute Auto 500 /uL (0-900); Neutrophils Absolute Auto 2800 /uL (1500-7000); Neutrophils Percent Auto 48.7 % (50-75); Platelet Count 301 X10^3/uL (150-400); Red Blood Cell Count 4.28 X10^6/uL (4.0-5.2); Red Cell Distribution Width 13.3 % (11.6-14.8); White Blood Cell Count 5.7 X10^3/uL (4.5-11.0)
[2023-12-19] MEDS: FAMOTIDINE 20 MG/2 ML VIAL IV (07:34)
[2023-12-19] MEDS: ASPIRIN 81 MG CHEW TAB 324 MG PO (07:34)
[2023-12-19 07:42] LABS: Prothrombin Time 11.1 SECONDS (9.4-12.5)
[2023-12-19 07:45] LABS: PTT Partial Thromboplastin Tim 36 SECONDS (25.1-36.5)
[2023-12-19 07:50] LABS: Alanine Aminotransferase 18 IU/L (<35); Albumin 4.2 g/dL (3.5-5.0); Albumin Globulin Ratio 1.4 (1.0-2.8); Alkaline Phosphatase 76 U/L (38-126); Aspartate Aminotransferase 31 IU/L (14-36); BUN Creatinine Ratio 13.9 (6-22); Bilirubin Total 0.5 mg/dL (0.2-1.3); Blood Urea Nitrogen 10 mg/dL (7-17); Calcium 9.3 mg/dL (8.4-10.2); Carbon Dioxide 27 mmol/L (22-32); Chloride 106 mmol/L (98-107); Creatine Kinase 100 U/L (30-135); Estimated Glomerular Filt Rate > 60 mL/min (>60); Globulin 2.9 g/dL (1.7-4.1); Glucose 95 mg/dL (80-110); HEMOLYSIS 21 (0-50); Lipase 74 U/L (23-300); Magnesium 2.1 mg/dL (1.6-2.3); Potassium 3.8 mmol/L (3.4-5.1); Sodium 138 mmol/L (137-145); Total Protein 7.1 g/dL (6.3-8.2)
[2023-12-19 08:01] LABS: NT-proBNP (BNP-Adult 18+) 204 pg/mL (<125); Troponin I < 0.012 ng/mL (0.01-0.034)
[2023-12-19 08:33] LABS: Influenza A - CEPHEID Flu A NEGATIVE (NEGATIVE); Influenza B - CEPHEID Flu B NEGATIVE (NEGATIVE); Respiratory Syncytial Virus Negative (Negative)
[2023-12-19 10:02] LABS: COVID-19 CEPHEID 4-PLEX PCR Negative (Negative)
== END 2023-12-19 10:05 | disposition home or self-care (01) ==
PROVIDERS: Emergency Provider Student in an Organized Health Care Education/Training Program; PCP Family Medicine
DX: R07.89 Other chest pain (principal)
CPT/HCPCS: 0241U; 36415; 71045; 80053; 82550; 83690; 83735; 83880; 84484; 85025; 85610; 85730; 93005; 96374; 99284

== ENCOUNTER → 2023-12-23 11:08 | Outpatient (CLI) | payer MEDICARE, OTHER, SELFPAY | PROVIDERS: PCP Family Medicine; Referring Provider Family Medicine; Visit Provider Family Medicine | DX: R07.9 Chest pain, unspecified (principal); E78.5 Hyperlipidemia, unspecified; I10 Essential (primary) hypertension | CPT/HCPCS: 36415; 82384; 83835 ==

== ENCOUNTER → 2023-12-26 07:50 | Outpatient (CLI) | payer MEDICARE, OTHER, SELFPAY | PROVIDERS: PCP Family Medicine; Referring Provider Family Medicine; Visit Provider Family Medicine | DX: E78.5 Hyperlipidemia, unspecified (principal); R07.9 Chest pain, unspecified; I10 Essential (primary) hypertension | CPT/HCPCS: 82384; 83835 ==

== ENCOUNTER → 2024-01-05 14:00 | Outpatient (CLI) | payer MEDICARE, OTHER, SELFPAY ==
--- NOTE | 2024-01-05 14:01 | DI.NM.S_ITS ---
PROCEDURE: NM IRVING PERF SPECT REST & STR Rest and exercise myocardial perfusion SPECT with gated imaging and ejection fraction RADIOPHARMACEUTICAL: 26.4 mCi Tc-99m sestamibi IV at rest and 25.6 mCi Tc-99m sestamibi IV at peak exercise. A twoday-protocol was performed. INDICATIONS: chest pain, HTN TECHNIQUE: Radiopharmaceutical was injected at peak stress test, and also at rest. SPECT images were obtained. SPECT myocardial perfusion images were displayed in short axis, horizontal long axis, and vertical long axis views. Gated images were reviewed using Jammit software. COMPARISON: None. CARDIAC STRESS: A standard Carmine treadmill exercise tolerance test was performed by the patient under the supervision of an attending staff. The patient exercised for 8 minutes and 2 seconds; functional aerobic impairment (PATRICIA) is -28%. Hemodynamic data: There is normal heart rate response to exercise stress. Patient achieved 105% of maximum predicted heart rate at peak exercise. Hypertensive response to exercise (resting BP 140/90mmHg, max BP 210/100mmHg). Symptoms: Patient denied chest pain during exercise. EKG: No diagnostic EKG changes of ischemia; rare PVCs. FINDINGS: Raw data: There is good myocardial labeling by radiotracer. No significant motion artifacts. Vfui-oc-cxigg ratio is 0.37 (normal is less than 0.38 for sestamibi tracer, and less than 0.50 for thallium tracer). Left ventricle function: Gated images demonstrate normal left ventricle wall thickening. No segmental wall motion abnormality. No transient ischemic dilation; TID is 0.93 (normal less than 1.3). The left ventricle resting end-diastolic volume is 112 mL. Left ventricle stress ejection fraction is 71%; normal values are above 45%. Myocardial perfusion: There is normal distribution of activity in the left and right ventricular myocardium. No fixed or reversible perfusion defects. IMPRESSION: Low risk, normal treadmill nuclear stress test from inducible ischemia standpoint. Hypertensive response to exercise (resting BP 140/90mmHg, max BP 210/100mmHg). 1) No perfusion evidence of ischemia or infarction. 2) Normal left ventricular size, wall motion, and systolic function (EF post stress 71%). 3) No ST changes during exercise or recovery. 4) No angina during the study. 5) Good exercise tolerance (10.1 METs, PATRICIA -28%). 105% of maximum predicted heart rate reached. 6) Hypertensive response to exercise (resting BP 140/90mmHg, max BP 210/100mmHg). 7) No prior nuclear stress test available for comparison. Dictated by: Sandoval Dash MD on 01/06/2024 at 12:32 Approved by: Sandoval Dash MD on 01/06/2024 at 12:37
== END ==
LOC: NUCM 14:01
PROVIDERS: PCP Family Medicine; Referring Provider Family Medicine; Visit Provider Family Medicine
DX: R07.9 Chest pain, unspecified (principal); E78.5 Hyperlipidemia, unspecified; I10 Essential (primary) hypertension
CPT/HCPCS: 78452; 93017; A9502

== ENCOUNTER → 2024-01-11 08:11 | Outpatient (CLI) | payer MEDICARE, OTHER, SELFPAY ==
--- NOTE | 2024-01-11 08:12 | DI.CT.S_ITS ---
PROCEDURE: CT ABDOMEN ADRENAL PROTOCOL INDICATIONS: concern for pheochromocytoma TECHNIQUE: Noncontrast 3 mm thick sections acquired from the diaphragms to the iliac crests. After the administration of intravenous contrast, 3 mm thick venous-phase and 15-minute delayed images acquired from the diaphragms to the iliac crests. For radiation dose reduction, the following was used: automated exposure control, adjustment of mA and/or kV according to patient size. COMPARISON: [facility], CT, CT CHEST ABD PEL W CON, 09/06/2022, 20:43 . FINDINGS: Image quality: Diagnostic Lower chest: No pleural effusions. No significant airspace disease. Normal heart size. Liver: Suspect cyst in the central liver, similar to prior. Gallbladder and biliary system: Unremarkable, CBD measures 6 mm, which is the upper limit of normal. Pancreas: No ductal dilation Spleen: Nonenlarged Adrenals: 1.4 cm left adrenal nodule is present, with lipid rich contents, stable from prior. Another smaller lipid rich region is seen more posteriorly. Kidneys: No solid mass or hydronephrosis. Left upper pole renal cyst. Nonobstructing left upper pole punctate renal calculus Vessels and lymph nodes: No abdominal aortic aneurysm. Main portal vein appears patent. No retroperitoneal mass lesion identified, other than the adrenal nodule. No pathologic lymph nodes by size criteria Bowel and peritoneum: Unremarkable Body wall: Unremarkable Bones: No acute or suspicious osseous finding. There are degenerative changes. 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 Correlate with laboratory testing to determine functional status. No discrete retroperitoneal mass otherwise. No right adrenal nodule. Other findings above Dictated by: Gavin Beck M.D. on 01/11/2024 at 10:39 Approved by: Gavin Beck M.D. on 01/11/2024 at 10:44
== END ==
LOC: CT 08:11
PROVIDERS: PCP Family Medicine; Referring Provider Family Medicine; Visit Provider Family Medicine
DX: E27.9 Disorder of adrenal gland, unspecified (principal); I10 Essential (primary) hypertension; N28.1 Cyst of kidney, acquired; N20.0 Calculus of kidney
CPT/HCPCS: 74170; Q9967

== ENCOUNTER → 2024-01-17 07:55 | Outpatient (CLI) | payer MEDICARE, OTHER, SELFPAY ==
--- NOTE | 2024-01-17 07:57 | DI.ECHO.S_ITS ---
[facility] +---------+ Hospital : : [address] : : [place] : : [id number] : : Phone: [phone] Echocardiogram Report + + :Name: PATTY BENNETT Study Date: 01/17/2024 Height: 68 in : :Hospital ReadingLocation: Weight: 138 lb : : Gender: Female BSA: 1.7 m2 : :: 1955 Age: 68 yrs BP: 136/90 mmHg: :Reason For Study: Chest Pain : :Ordering Physician: NURA, : :JING Performed By: Ashley Valero : :Referring: JING LYMAN : + + Interpretation Summary The left ventricle is normal in size and wall thickness. Left ventricular ejection fraction is estimated to be 50 +/- 5%. The right ventricle is normal in size and function. No significant valvular pathology. Mild MR and TR. The right ventricular systolic pressure is estimated to be at least 23 mmHg based on an estimated right atrial pressure of 3 mm Hg. Procedure: A two-dimensional transthoracic echocardiogram with color flow and Doppler was performed. The study quality was technically good. There is no prior echocardiogram noted for this patient. The patient was in sinus rhythm with heart rates between 52-71 bpm during the exam. Left Ventricle: The left ventricle is normal in size and wall thickness. There is no thrombus. A false chord is noted (normal variant). Left ventricular ejection fraction is estimated to be 50 +/- 5%. There are no focal wall motion abnormalities. Diastolic parameters suggest a relaxation abnormality of the left ventricle, consistent with probable normal filling pressures. Right Ventricle: The right ventricle is normal in size and function. Atria: Both atria are normal in size. There is no Doppler evidence for an interatrial shunt. Mitral Valve: The mitral valve is normal. There is no mitral valve stenosis. There is mild mitral regurgitation. Aortic Valve: The aortic valve is trileaflet. The aortic valve opens well. There is no aortic valve stenosis. No aortic regurgitation is present. Tricuspid Valve: The tricuspid valve leaflets are thin and pliable. There is mild tricuspid regurgitation. The right ventricular systolic pressure is estimated to be at least 23 mmHg based on an estimated right atrial pressure of 3 mm Hg. Pulmonic Valve: The pulmonic valve leaflets are thin and pliable; valve motion is normal. There is no pulmonic valvular regurgitation. Great Vessels: The aortic root is normal size. The ascending aorta is normal in size. The aortic arch is normal in size. The pulmonary artery is normal size. The IVC is of normal diameter and collapses greater than 50% with a sniff. This suggests a low right atrial pressure of 3 mm Hg. Pericardium/ Pleura There is a trivial pericardial effusion noted. There are no echocardiographic or Doppler indications for cardiac tamponade. There is no pleural effusion. MMode/2D Measurements & Calculations LVIDd: 5.0 cm LVOT diam: 2.1 cm LVIDs: 4.1 cm Ao root diam: 3.4 cm FS: 17.7 % asc Aorta Diam: 3.4 cm EPSS: 0.70 cm Ao Arch Diam (Prox Trans): 2.2 cm IVSd: 0.71 cm LVPWd: 0.66 cm LV elaine. diameter/BSA (cm/m^2): 2.8 LV sys. diameter/BSA (cm/m^2): 2.3 LA A2 area: 14.4 cm2 RA long axis: 4.5 cm LA A4 area: 19.3 cm2 RA area: 13.6 cm2 LA length (vol): 4.8 cm RA vol: 35.3 ml LA vol: 48.9 ml RA : 20.2 ml/m2 LA vol index: 28.0 ml/m2 TAPSE: 2.1 cm Doppler Measurements & Calculations Ao V2 max: 128.3 cm/sec LVOT Max Pedro: 76.5 cm/sec Ao V2 mean: 90.3 cm/sec LV V1 max P.3 mmHg Ao max P.6 mmHg LV V1 VTI: 19.1 cm Ao mean P.7 mmHg PRIMITIVO(I,D): 2.1 cm2 Ao V2 VTI: 29.9 cm PRIMITIVO(V,D): 2.0 cm2 sev ratio: 0.64 RPIMITIVO indexed to BSA (cm^2/m^2): 1.2 MV E max pedro: 69.0 cm/sec TR max pedro: 225.7 cm/sec MV A max pedro: 72.8 cm/sec TR max P.4 mmHg MV E/A: 0.95 PA pr(Accel): 13.9 mmHg Med Peak E' Pedro: 5.1 cm/sec E/E' med: 13.6 Lat Peak E' Pedro: 5.8 cm/sec E/E' lat: 11.9 E/e' average: 12.8 MV dec time: 0.16 sec MVA(VTI): 2.3 cm2 MV V2 mean: 41.7 cm/sec SV(LVOT): 63.9 ml MV mean P.93 mmHg MV V2 VTI: 27.9 cm Reading Physician:10:40 AM
== END ==
LOC: ECHO 07:57
PROVIDERS: PCP Family Medicine; Referring Provider Family Medicine; Visit Provider Family Medicine
DX: I08.1 Rheumatic disorders of both mitral and tricuspid valves (principal); R07.9 Chest pain, unspecified; E78.5 Hyperlipidemia, unspecified; I10 Essential (primary) hypertension
CPT/HCPCS: 36415; 82088; 83735; 84244; 93306

== ENCOUNTER → 2024-01-17 09:05 | Outpatient (CLI) | payer MEDICARE, OTHER, SELFPAY ==
[2024-01-17 10:50] LABS: Magnesium 2.1 mg/dL (1.6-2.3)
== END ==
PROVIDERS: PCP Family Medicine; Referring Provider Internal Medicine Cardiovascular Disease; Visit Provider Internal Medicine Cardiovascular Disease
DX: I10 Essential (primary) hypertension (principal)
CPT/HCPCS: 36415; 82088; 83735; 84244

== ENCOUNTER → 2024-02-07 08:01 | Outpatient (CLI) | payer MEDICARE, OTHER, SELFPAY ==
[2024-02-07 10:29] LABS: Cortisol AM (Before 10AM) 2.06 ug/dL (4.46-22.7)
== END ==
PROVIDERS: PCP Family Medicine; Referring Provider Surgery; Visit Provider Surgery
DX: I10 Essential (primary) hypertension (principal); E78.5 Hyperlipidemia, unspecified; D35.02 Benign neoplasm of left adrenal gland
CPT/HCPCS: 36415; 82533

== ENCOUNTER → 2024-10-02 14:50 | Outpatient (CLI) | payer MEDICARE, OTHER, SELFPAY ==
--- NOTE | 2024-10-02 14:52 | DI.US.S_ITS ---
PROCEDURE: US THYROID INDICATIONS: 1 year follow up on thyroid nodule TECHNIQUE: Real-time scanning was performed of the thyroid gland, with image documentation. COMPARISON: [facility], US, US THYROID, 10/29/2020, 16:20. [facility], US, US THYROID, 10/14/2023, 15:16. FINDINGS: Thyroid: Right lobe measures 4.6 x 1.7 x 1.5 cm. Left lobe measures 4.6 x 1.2 x 1.5 cm. Isthmus is 0.2 cm thick. Echotexture is homogeneous. Multiple small thyroid nodules are again seen, which do not meet size or imaging criteria for follow-up. Nodule number: 1 Location: Right midpole Size: 1.9 x 1.1 x 1.0 cm. Previously 1.9 x 1.2 x 1.0 centimeter in 2020. Composition: Mixed cystic and solid. Echogenicity: Hypoechoic Shape: wider than tall. Margins: Smooth Echogenic foci: Coarse Total points: 4 ACR TI-RADS category: 4 IMPRESSION: The dominant right thyroid nodule is unchanged in size and appearance compared with 2020. This does not meet size criteria for re-biopsy. Last follow-up is recommended in 2025. Remaining subcentimeter thyroid nodules do not meet size criteria or imaging criteria for follow-up. ACR TI-RADS definitions and recommendations: TI-RADS 1 (benign): 0 points. FNA not needed. TI-RADS 2 (not suspicious): 2 points. FNA not needed. TI-RADS 3: 3 points. * FNA if 2.5 cm or larger, follow up if 1.5 cm or larger (at 1, 3, and 5 years). TI-RADS 4: 4-6 points. * FNA if 1.5 cm or larger, follow up if 1 cm or larger (at 1, 2, 3, and 5 years). TI-RADS 5: 7 points or more. * FNA if 1 cm or larger, follow up if 0.5 cm or larger (every year for 5 years). Dictated by: Yadiel Harley M.D. on 10/03/2024 at 10:49 Approved by: Yadiel Harley M.D. on 10/03/2024 at 10:53
== END ==
PROVIDERS: PCP Family Medicine; Referring Provider Family Medicine; Visit Provider Family Medicine
DX: E04.1 Nontoxic single thyroid nodule (principal)
CPT/HCPCS: 76536

== ENCOUNTER → 2024-11-12 15:59 | Outpatient (CLI) | payer MEDICARE, OTHER, SELFPAY ==
--- NOTE | 2024-11-12 16:01 | DI.MG.S_ITS ---
MM screening mammo BI: 11/12/2024. BI-RADS: 2 CLINICAL: 69-year old female for bilateral screening mammogram. Tyrer-Cuzick lifetime risk of 13.7%. Current reported family history of breast cancer: mother. The patient had a prior left breast biopsy. PRIOR EXAMS 11/11/2023, 11/11/2022, 11/05/2022, 08/27/2021. MAMMOGRAPHY TECHNIQUE: 2D and 3D (tomosynthesis) digital mammographic views obtained, with additional images as needed for full coverage. Current study was also evaluated with a Computer Aided Detection (CAD) system. DENSITY C. The breasts are heterogeneously dense, which may obscure small masses. MAMMOGRAPHY FINDINGS Right: Biopsy marker present on the right. There are no suspicious masses, calcifications, or other findings in the breast. Left: No suspicious mass, asymmetry, microcalcification, or other abnormality seen. IMPRESSION: Right * No evidence of malignancy with benign findings. Left * No evidence of malignancy. RECOMMENDATIONS Bilateral * Annual screening mammography. OVERALL ASSESSMENT CATEGORY BI-RADS-2: Benign. The [employer] recommends annual screening mammography beginning at age 40 for women with average risk of breast cancer. ELECTRONICALLY SIGNED: Shree Segundo M.D. on 11/13/2024 at 11:50:51 AM PT Interpreting Station ID: [id number]
== END ==
LOC: MAMMO 16:00
PROVIDERS: PCP Family Medicine; Referring Provider Family Medicine; Visit Provider Family Medicine
DX: Z12.31 Encounter for screening mammogram for malignant neoplasm of breast (principal); M85.89 Other specified disorders of bone density and structure, multiple sites; R92.333 Mammographic heterogeneous density, bilateral breasts; Z80.3 Family history of malignant neoplasm of breast
CPT/HCPCS: 77063; 77067

== ENCOUNTER → 2024-12-10 10:46 | Outpatient (CLI) | payer MEDICARE, OTHER, SELFPAY ==
--- NOTE | 2024-12-10 10:48 | DI.RAD.S_ITS ---
PROCEDURE: XR DEXA AXIAL SKELETON INDICATIONS: Osteopenia COMPARISON: [facility], CR, XR DEXA AXIAL SKELETON, 11/05/2022, 12:18. FINDINGS: Lumbar Spine: Bone mineral density 0.743 (previously 0.755) g/cm2, T score -2.8 (previously -2.7). Left Femoral Neck: Bone mineral density 0.671 (previously 0.679) g/cm2, T score -1.6 (previously -1.5). Left Hip: Bone mineral density 0.764 (previously 0.773) g/cm2, T score -1.5 (previously -1.4). Fracture Risk Calculation (when applicable): 10-year fracture risk of a major osteoporotic fracture 15 percent and of a hip fracture 1.8 percent. (T score greater or equal to -1.0 to: NORMAL) (T score from -1.1 to -2.4: OSTEOPENIA) (T score less than or equal to -2.5: OSTEOPOROSIS) IMPRESSION: Osteoporosis--- recommend repeat DEXA in 2 years or less for reassessment of response to treatment. Follow-up guidelines as follows: Osteoporosis: Consider a repeat DEXA and Vertebral Fracture Assessment (VFA) exam in 2 years or sooner if medically necessary, to reassess this patient's status. Osteopenia: Consider a repeat DEXA in 2-3 years to reassess this patient's status, or if there is a new clinical indication. Normal: Consider a repeat DEXA in 5 years or sooner, or if there is a new clinical indication. All treatment decisions require clinical judgment and consideration of individual patient factors, including patient preferences, comorbidities, previous drug use, risk factors not captured in the FRAX model (e.g., frailty, falls, vitamin D deficiency, increased bone turnover, interval significant decline in bone density ) and possible under- or over-estimation of fracture risk by FRAX. In addition, the NOF Guide recommends that FDA-approved medical therapies be considered in postmenopausal women and men age >= 50 years with a: * Hip or vertebral (clinical or morphometric) fracture * T-score of <=-2.5 at the spine or hip * Ten-year fracture probability by FRAX of >= 3% for hip fracture or >=20% for major osteoporotic fracture. Dictated by: Parviz Correia M.D. on 12/10/2024 at 20:48 Approved by: Parviz Correia M.D. on 12/10/2024 at 20:51
== END ==
LOC: RAD 10:47
PROVIDERS: PCP Family Medicine; Referring Provider Family Medicine; Visit Provider Family Medicine
DX: M81.0 Age-related osteoporosis without current pathological fracture (principal)
CPT/HCPCS: 77080